=== PATIENT | female | born 1950 | race Caucasian/White ===

== ENCOUNTER 2016-12-25 23:12 | Emergency (ER) | payer OTHER ==
[2016-12-25 23:22] VITALS: BP 181/85; BMI 26.5
--- NOTE | 2016-12-25 23:25 | DR.GENAD ---
HPI - Complaint/Symptoms Chief Complaint Doctors Comments: Patient was using her walker and slipped and injured her head, and lower extremitiy. There was no LOC. Denies vomiting. PMH - PMH Past Medical History: Arthritis, Diabetes Past Surgical History: Yes Surgical History: Cholecystectomy, Hysterectomy - Social History Do you use any recreational Drugs:: No ROS - Review of Systems Constitutional: No Symptoms Reported Eyes: No Symptoms Reported ENTM: No Symptoms Reported Respiratoy: No Symptoms Reported Cardiovascular: No Symptoms Reported Gastrointestinal/Abdominal: No Symptoms Reported Genitourinary: No Symptoms Reported Neurological: No Symptoms Reported Musculoskeletal: No Symptoms Reported, Neck (right base of skull moderate hematoma) Integumentary: No Symptoms Reported Hematologic/Lymphatic: No Symptoms Reported Endocrine: No Symptoms Reported Psychiatric: No Symptoms Reported All Other Systems: Reviewed and Negative PE - Vital Signs Vitals: Temperature 98.4 F Pulse Rate 118 Respiratory Rate 18 Blood Pressure 181/85 O2 Sat by Pulse Oximetry 97 - General General Appearance: Alert, In No Apparent Distress - Head Head Exam: Other (large hematoma right base of skull) - Eyes Eye exam: Normal Appearance, PERRL, EOMI - ENT ENT Exam: Normal Exam External Ear Exam: Normal External Inspection TM/Canal Exam: Bilateral Normal Nose Exam: Normal Nose Exam Mouth Exam: Normal Inspection Throat Exam: Normal Inspection - Neck Neck Exam: Normal Inspection, Full ROM - Chest Chest Inspection: Normal Inspection - Respiratory Respiratory Exam: Normal Lung Sounds Bilat Respiratory Exam: Bilateral Clear to Auscultation - Cardiovascular Cardiovascular Exam: Regular Rate, Normal Rhythm - Abdominal Exam Abdominal Exam: Normal Inspection Abdominal Tenderness: negative: RUQ, RLQ, LUQ, LLQ, Epigastrium, Suprapubic, Diffuse, Mild, Moderate, Severe, Other - Extremities Extremities Exam: Normal Inspection, Other (right foot c/o pain dorsally) - Back Back Exam: Normal Inspection - Neurologic Neurological Exam: Alert, Oriented X3, CN II-XII Intact - Psychiatric Psychiatric Exam: Normal Affect, Normal Mood - Skin Skin Exam: Warm, Dry, Intact ROR - XRAY XRAY Interpreted by: Radiologist (CT Brain: No acute abnormality identified, L Knee mild osteoarthritis, L foot normal, L ankle normal) - Diagnosis Discharge Problem: L Knee mild osteoarthritis Hematoma of right parietal scalp Qualifiers: Encounter type: initial encounter Qualified Code(s): S00.03XA - Contusion of scalp, initial encounter Contusion of left foot Qualifiers: Encounter type: initial encounter Qualified Code(s): S90.32XA - Contusion of left foot, initial encounter Ankle sprain Qualifiers: Encounter type: initial encounter Involved ligament of ankle: unspecified ligament Laterality: left Qualified Code(s): S93.402A - Sprain of unspecified ligament of left ankle, initial encounter - Discharge Plan Condition: Stable - Follow ups/Referrals Follow ups/Referrals: Behzad Whipple [Primary Care Provider] - 3 days - Instructions
--- NOTE | 2016-12-25 23:57 | CT ---
EXAM: CT BRAIN WITHOUT CONTRAST INDICATION: Fall, headache COMPARISION: No Priors TECHNIQUE: Routine axial CT of the brain was performed without intravenous contrast. FINDINGS: There is mild bilateral cortical atrophy. The ventricular system is not abnormally dilated. No intra or extra-axial mass or hemorrhage. The agosto-white junction is preserved. There is no evidence of suba cute ischemic change. The basilar cisterns are clear. The skull is intact. The paranasal sinuses and mastoid air cells are clear. IMPRESSION: There is bilateral cortical atrophy as described above. No acute abnormality identified. Reported By:
--- NOTE | 2016-12-25 23:59 | RAD ---
EXAM: Left foot x-ray INDICATION: Pain COMPARISION: None TECHNIQUE: AP, lateral, and oblique, three views FINDINGS: No acute fracture or dislocation. The joint spaces are preserved. The soft tissues are normal. No rad iopaque foreign body. IMPRESSION: Normal left foot x-ray exam Reported By:
--- NOTE | 2016-12-25 23:59 | RAD ---
EXAM: Left ankle x-ray INDICATION: Pain COMPARISION: No priors for comparison TECHNIQUE: AP, lateral, and oblique, three views FINDINGS: No acute fracture or dislocation. There is no evidence of an intraosseous lesion. The joint spaces ar e preserved. No joint effusion is identified. The surrounding soft tissues appear unremarkable. There is no evidence of a radiopaque foreign body. IMPRESSION: Normal left ankle x-ray exam Reported By:
--- NOTE | 2016-12-25 23:59 | RAD ---
EXAM: Left knee x-ray INDICATION: Knee Pain COMPARISION: None TECHNIQUE: AP, lateral, and oblique, three views FINDINGS: There is mild medial compartment joint space narrowing. The lateral compartment and patellofemoral nav int appear unremarkable. No acute fracture or dislocation. No joint effusion. The surrounding soft ti ssues appear unremarkable. IMPRESSION: There is mild osteoarthritis involving the medial compartment of the knee. No acute abnormality. Reported By:
== END 2016-12-26 00:52 | disposition home or self-care (01) ==
LOC: ER 23:12
DX: S00.03XA Contusion of scalp, initial encounter (principal); S90.32XA Contusion of left foot, initial encounter; S93.402A Sprain of unspecified ligament of left ankle, initial encounter; M17.12 Unilateral primary osteoarthritis, left knee; W18.49XA Other slipping, tripping and stumbling without falling, initial encounter; Y92.9 Unspecified place or not applicable; S09.8XXA Other specified injuries of head, initial encounter
CPT/HCPCS: 70450; 73560; 73610; 73630; 99283

== ENCOUNTER 2019-06-10 15:03 | Inpatient (IN) ==
--- NOTE | 2019-06-10 15:19 | DR.WEAKNES ---
HPI Time Seen Time Seen by Provider: 06/10/19 15:18 Primary Care Physician Primary Care Physician: CARLOS RODNEY Complaints Chief Complaint Doctors Comments: Sx's started >48 hrs ago. She felt ED would be too busy, so didn't come. Now with persistent sx's of left sided CVA. Weak left arm and leg. No headache or blurred vision. No N or V. No difficulty with speech. Chief Complaint:: PT TO ER VIA EMS WITH C/O LEFT SIDE WEAKNESS THAT STARTED ON SUNDAY , PT C/O LEFT SIDE WEAKNESS AND PT IS NOT ABLE TO MOVE HER LEFT LOWER EXT AT ALL , PT STATES " I DID NOT COME ON SUNDAY B/C I KNEW [facility] WOULD BE BUSY .. Self Treatment fo Chief Complaint: PT IS A POOR HISTORIAN , Reviewed Nurses Notes Reviewed: Yes Source History Provided: Patient Mode of Arrival Mode of Arrival: EMS Timing Onset of Chief Complaint: 06/08/19 Since onset, symptoms are:: Unchanged Symptom Onset: Known Duration Duration: Since Onset Context Onset: Spontaneous Symptoms: Weakness and Difficulty walking History of: None Stroke Symptoms: Weakness of limb; denies Acute confusion and Slurring Location Weakness Location: Left, Sided, Arm and Leg Associated Signs and Symptoms Associated Signs and Symptoms: None PMH PMH Past Medical History: Yes Past Medical History: Arthritis and Diabetes Past Medical History Comment: no HTN. Past Surgical History: Yes Surgical History: Cholecystectomy and Hysterectomy Family History History of Family Medical Conditions: No Social History Does patient currently use any type of tobacco product: Yes Have you used tobacco products in the last 12 months: Yes Type of Tobacco Use: Cigarettes Does any household member use tobacco: No Alcohol Use: None Do you use any recreational Drugs:: No Lives With: Family Lives Where: Home infectious screening In the last 2 months have you had wt loss of >10#?: NO Have you had fever, night sweats or hemotysis?: No Have you traveled outside the country in the last 6 months?: No Isolation: Standard ROS Review of Systems Constitutional: No Symptoms Reported Eyes: No Symptoms Reported; negative Blurred Vision Respiratoy: No Symptoms Reported Cardiovascular: No Symptoms Reported Gastrointestinal/Abdominal: No Symptoms Reported Neurological: Weakness; negative Headache, Pre-existing Deficit, Seizure and Speech Problem Integumentary: No Symptoms Reported All Other Systems: Reviewed and Negative PE Vital Signs Vitals: Temperature 97.7 F Pulse Rate [Left Brachial] 109 Pulse Rate 118 Respiratory Rate 17 Blood Pressure [Left Arm] 114/73 Blood Pressure 163/80 O2 Sat by Pulse Oximetry 93 General Limitations: No Limitations General Appearance: Alert and In No Apparent Distress Head Head Exam: Atraumatic Eyes Eye exam: Normal Appearance and EOMI ENT ENT Exam: Mucous Membranes Dry Neck Neck Exam: Normal Inspection and Full ROM; negative Meningismus Respiratory Respiratory Exam: Normal Lung Sounds Bilat Cardiovascular Cardiovascular Exam: Regular Rate and Normal Rhythm Abdominal Exam Abdominal Exam: Normal Inspection and Soft; negative Tenderness and Guarding Extremities Extremities Exam: negative Edema and Calf Tenderness Neurologic Neurological Exam: Alert, Oriented X3 and Motor Sensory Deficit Cranial Nerve Exam: EOM Function (II, III, IV, ): Normal, Facial Sensation (V): Normal, Facial Palsy (VII): Normal and Tongue Deviation: Normal Motor Strength - LUE: 2/5 Motor Strength - RUE: 5/5 Motor Strength - LLE: 2/5 Motor Strength - RLE: 5/5 Psychiatric Psychiatric Exam: Normal Affect and Normal Mood Skin Skin Exam: Warm, Dry and Normal Color MDM Differential Diagnosis Differential Diagnosis: CVA, Hypoglycemia, Mass Lesion and SAH ROR Labs Reviewed Laboratory Results Reviewed?: Yes Result Diagrams: 06/10/19 16:00 06/10/19 16:00 Laboratory: WBC 12.2 X10^3/uL (3.6-10.0) H 06/10/19 16:00 RBC 5.81 X10^6/uL (3.5-5.4) H 06/10/19 16:00 Hgb 17.3 g/dL (12.0-16.0) H 06/10/19 16:00 Hct 50.2 % (36.0-47.0) H 06/10/19 16:00 MCV 86.5 fL (80.0-100.0) 06/10/19 16:00 MCH 29.8 pg (27.0-34.0) 06/10/19 16:00 MCHC 34.5 g/dL (33.0-35.0) 06/10/19 16:00 RDW 14.1 % (11.6-16.5) 06/10/19 16:00 Plt Count 295 X10^3/uL (150.0-450.0) 06/10/19 16:00 MPV 9.1 fL (7.4-11.0) 06/10/19 16:00 Neut % (Auto) 77.3 % (42.0-75.0) H 06/10/19 16:00 Lymph % (Auto) 15.4 % (21.0-51.0) L 06/10/19 16:00 Dixon % (Auto) 5.6 % (0.0-13.0) 06/10/19 16:00 Eos % (Auto) 0.8 % (0.9-2.9) L 06/10/19 16:00 Baso % (Auto) 0.9 % (0.2-1.0) 06/10/19 16:00 Neut # (Auto) 9.5 x10^3/uL (2.2-4.8) H 06/10/19 16:00 Lymph # (Auto) 1.9 X10^3/uL (1.3-2.9) 06/10/19 16:00 Dixon # (Auto) 0.7 x10^3/uL (0.3-0.8) 06/10/19 16:00 Eos # (Auto) 0.1 x10^3/uL (0.0-0.2) 06/10/19 16:00 Baso # (Auto) 0.1 X10^3/uL (0.0-0.1) 06/10/19 16:00 Absolute Nucleated RBC 0.0 /100WBC 06/10/19 16:00 PT 13.2 SECONDS (11.8-14.3) 06/10/19 16:00 INR Target Range - 06/10/19 16:00 INR 1.04 (0.8-1.3) 06/10/19 16:00 APTT 25.4 SECONDS (22.9-36.5) 06/10/19 16:00 PTT Comment - 06/10/19 16:00 Fibrinogen 347 mg/dL (239-489) 06/10/19 16:00 Sodium 138 mmol/L (136-145) 06/10/19 16:00 Corrected Sodium 142 mmol/L (136-145) 06/10/19 16:00 Potassium 3.9 mmol/L (3.5-5.1) 06/10/19 16:00 Chloride 101 mmol/L (98-107) 06/10/19 16:00 Carbon Dioxide 26.5 mmol/L (21-32) 06/10/19 16:00 BUN 18 mg/dL (7-18) 06/10/19 16:00 Creatinine 0.58 mg/dL (0.55-1.02) 06/10/19 16:00 Est GFR (MDRD) Af Amer > 60 (>60) 06/10/19 16:00 Est GFR (MDRD) Non-Af > 60 (>60) 06/10/19 16:00 Glucose 252 mg/dL (65-99) H 06/10/19 16:00 Calcium 9.6 mg/dL (8.5-10.1) 06/10/19 16:00 Corrected Calcium TNP 06/10/19 16:00 Total Bilirubin 0.70 mg/dL (0.2-1.0) 06/10/19 16:00 AST 21 Units/L (15-37) 06/10/19 16:00 ALT 36 Units/L (12-78) 06/10/19 16:00 Alkaline Phosphatase 98 Units/L (46-116) 06/10/19 16:00 Total Protein 7.2 g/dL (6.4-8.2) 06/10/19 16:00 Albumin 3.6 g/dL (3.4-5.0) 06/10/19 16:00 Globulin 3.6 g/dL (2.5-4.5) 06/10/19 16:00 Albumin/Globulin Ratio 1.0 Ratio (1.1-2.1) L 06/10/19 16:00 Triglycerides 318 mg/dL (0-150) H 06/10/19 16:00 Cholesterol 254 mg/dL (0-200) H 06/10/19 16:00 LDL Cholesterol, Calc 164 mg/dL (0-100) H 06/10/19 16:00 HDL Cholesterol 26 mg/dL (40-60) L 06/10/19 16:00 Cholesterol/HDL Ratio 9.8 (0.0-5.0) H 06/10/19 16:00 XRAY X-ray Results: CT and MRI show CVA right internal capsule EKG Rate: 109 Tyler: Normal Rhythm: NSR and PVCs Block: None Hypertrophy: None ST: Nonsp Opioid Opioid Risk Tool Age (Sonny box if 16-45): No History of Preadolescent Sexual Abuse: No Total: 0 Total Score Risk Category: Low Risk Copyright: Mikie ODELL predicting aberrant behaviors ADDITIONAL NOTES Additional Notes Additional Notes: CVA admit ICU
--- NOTE | 2019-06-10 15:52 | CT ---
HISTORYLEFT SIDED WEAKNESS X 2 DAYSSTUDYCT HEAD without CONTRASTCOMPARISONNoneTECHNIQUEAxial CT of the head is performed from the base of the skull through the vertex without contrast . Multiplaner reformats are generated from the original axial data.FINDINGSThere is no intracranial hemorrhage identified. There is no extra-axial fluid collection. There is no mass effect, midline shift or evidence of cerebral edema. Advanced cortical volume loss is observed with commensurate dilation of the ventricles. Patchy periventricular and subcortical white matter hypodensities are observed, consistent with chronic microangiopathic ischemic changes. There is a more focal area of hypoattenuation observed within the posterior limb of the right internal capsule, consistent with an age indeterminate infarct, possibly subacute in nature. Otherwise, no acute stage, large artery territorial infarct is identified separately. Atherosclerotic calcifications are observed within the cavernous ICA segments and vertebral arteries.IMPRESSIONAge indeterminate small vessel infarct associated with the posterior limb of the right internal capsule, possibly subacute in nature. MRI would most accurately date this event.Moderate cortical volume loss of the supratentorial brain with commensurate ex vacuo dilatation of the lateral ventriclesOther findings of chronic microangiopathic ischemia associated with the deep supratentorial white matter tracts.Radiation dose reduction was achieved through individualized adjustment of kVP and/or mA, through adaptive statistical iterative reconstruction, and/or through automated tube current modulation.Electronically signed by: CHINEUD JAMA (Jun 10, 2019 15:50:59)
[2019-06-10 16:16] LABS: BASOPHILS # (AUTO) 0.1 X10^3/uL (0.0-0.1); BASOPHILS % (AUTO) 0.9 % (0.2-1.0); EOSINOPHILS # (AUTO) 0.1 x10^3/uL (0.0-0.2); EOSINOPHILS % (AUTO) 0.8 % (0.9-2.9); HEMATOCRIT 50.2 % (36.0-47.0); HEMOGLOBIN 17.3 g/dL (12.0-16.0); LYMPHOCYTES # (AUTO) 1.9 X10^3/uL (1.3-2.9); LYMPHOCYTES % (AUTO) 15.4 % (21.0-51.0); MEAN CORPUSCULAR HEMOGLOBIN 29.8 pg (27.0-34.0); MEAN CORPUSCULAR HGB CONC 34.5 g/dL (33.0-35.0); MEAN CORPUSCULAR VOLUME 86.5 fL (80.0-100.0); MEAN PLATELET VOLUME 9.1 fL (7.4-11.0); MONOCYTES # (AUTO) 0.7 x10^3/uL (0.3-0.8); MONOCYTES % (AUTO) 5.6 % (0.0-13.0); NEUTROPHILS # (AUTO) 9.5 x10^3/uL (2.2-4.8); NEUTROPHILS % (AUTO) 77.3 % (42.0-75.0); PLATELET COUNT 295 X10^3/uL (150.0-450.0); RED BLOOD COUNT 5.81 X10^6/uL (3.5-5.4); RED CELL DISTRIBUTION WIDTH 14.1 % (11.6-16.5); WHITE BLOOD COUNT 12.2 X10^3/uL (3.6-10.0)
[2019-06-10 16:29] LABS: ALANINE AMINOTRANSFERASE 36 Units/L (12-78); ALBUMIN 3.6 g/dL (3.4-5.0); ALKALINE PHOSPHATASE 98 Units/L (46-116); ASPARTATE AMINO TRANSFERASE 21 Units/L (15-37); BLOOD UREA NITROGEN 18 mg/dL (7-18); CALCIUM 9.6 mg/dL (8.5-10.1); CARBON DIOXIDE 26.5 mmol/L (21-32); CHLORIDE 101 mmol/L (98-107); CHOL/HDL RATIO 9.8 (0.0-5.0); CHOLESTEROL 254 mg/dL (0-200); COR NA(FOR HYPERGLY) 142 mmol/L (136-145); CREATININE 0.58 mg/dL (0.55-1.02); HDL CHOLESTEROL 26 mg/dL (40-60); SODIUM 138 mmol/L (136-145); TOTAL PROTEIN 7.2 g/dL (6.4-8.2); TRIGLYCERIDES 318 mg/dL (0-150); eGFR NON BLACK RACES > 60 (>60)
--- NOTE | 2019-06-10 17:29 | MRI ---
HISTORYCVA. Left-sided weakness for 2 days.STUDYBRAIN W/O CONCOMPARISONCT examinations from June 10, 2019 and December 25, 2016.TECHNIQUEMultiplanar multi-sequence MRI of the brain was obtained utilizing standard departmental protocol. Sagittal and axial T1, axial T2, FLAIR, diffusion (DWI/ADC, GRE, and coronal T1 images through the brain were performed.FINDINGSThe sulci, cisterns and ventricles are prominent consistent with diffuse volume loss. There are confluent and scattered foci of T2 prolongation in the periventricular and subcortical white matter of both hemispheres. This is a nonspecific finding which likely represents microangiopathic change in a patient of this age.There is a focus of decreased diffusion with associated T2 hyperintensity which appears centered in the posterior limb of the right internal capsule, with some extension into the right periventricular keating radiata. There may be some additional adjacent involvement of the right globus pallidus and right thalamus. There is no evidence of acute hemorrhage, mass, mass effect, or midline shift. There are no abnormal intra-axial or extra-axial fluid collections. The major intracranial vascular flow voids appear intact. The vertebral arteries are codominant.IMPRESSION1. Acute to early subacute infarct involving the posterior limb of the right internal capsule with extension into the right keating radiata, thalamus, and globus pallidus.2. Nonspecific white matter change and volume loss.Electronically signed by: JENNIE MONTENEGRO (Jun 10, 2019 17:27:41)
[2019-06-10] MEDS ORDERED: ASPIRIN 81 MG CHEWTAB ONE (19:39)
[2019-06-10] MEDS: ASPIRIN 81 MG CHEWTAB PO SCH (19:42)
[2019-06-10] MEDS: LIPITOR TAB 40 MG PO SCH (21:54)
[2019-06-10] MEDS: ULTRAM PO PRN (22:45)
[2019-06-10] MEDS: BUTT CREAM (COMPOUND) TOP PRN (22:45)
[2019-06-11 01:12] VITALS: BMI 28.3
[2019-06-11 05:17] LABS: BASOPHILS % (AUTO) 0.4 % (0.2-1.0); EOSINOPHILS # (AUTO) 0.2 x10^3/uL (0.0-0.2); EOSINOPHILS % (AUTO) 1.6 % (0.9-2.9); HEMATOCRIT 46.8 % (36.0-47.0); HEMOGLOBIN 16.3 g/dL (12.0-16.0); LYMPHOCYTES # (AUTO) 2.9 X10^3/uL (1.3-2.9); MEAN CORPUSCULAR HEMOGLOBIN 30.5 pg (27.0-34.0); MEAN CORPUSCULAR HGB CONC 34.8 g/dL (33.0-35.0); MEAN CORPUSCULAR VOLUME 87.7 fL (80.0-100.0); MEAN PLATELET VOLUME 9.5 fL (7.4-11.0); MONOCYTES # (AUTO) 0.7 x10^3/uL (0.3-0.8); MONOCYTES % (AUTO) 6.1 % (0.0-13.0); NEUTROPHILS # (AUTO) 7.7 x10^3/uL (2.2-4.8); NEUTROPHILS % (AUTO) 66.9 % (42.0-75.0); PLATELET COUNT 300 X10^3/uL (150.0-450.0); RED BLOOD COUNT 5.34 X10^6/uL (3.5-5.4); RED CELL DISTRIBUTION WIDTH 13.8 % (11.6-16.5); WHITE BLOOD COUNT 11.5 X10^3/uL (3.6-10.0)
[2019-06-11 05:18] LABS: ALANINE AMINOTRANSFERASE 30 Units/L (12-78); ALBUMIN 3.3 g/dL (3.4-5.0); ALKALINE PHOSPHATASE 89 Units/L (46-116); ASPARTATE AMINO TRANSFERASE 18 Units/L (15-37); BLOOD UREA NITROGEN 20 mg/dL (7-18); CALCIUM 8.6 mg/dL (8.5-10.1); CHLORIDE 101 mmol/L (98-107); COR CA(FOR HYPOALB) 9.2 mg/dL (8.5-10.1); COR NA(FOR HYPERGLY) 140 mmol/L (136-145); CREATININE 0.56 mg/dL (0.55-1.02); SODIUM 137 mmol/L (136-145); TOTAL PROTEIN 6.5 g/dL (6.4-8.2); eGFR NON BLACK RACES > 60 (>60)
[2019-06-11] MEDS ORDERED: KLOR-CON PO PRN (05:42)
[2019-06-11] MEDS ORDERED: POTASSIUM CHL 40 MEQ/NS 0.45% 500 ML IV PRN (05:42)
[2019-06-11] MEDS ORDERED: POTASSIUM CHL 60 MEQ/NS 0.45% 500 ML IV PRN (05:42)
[2019-06-11] MEDS ORDERED: POTASSIUM CHLORIDE LIQ 20 MEQ UDC PO PRN (05:42)
[2019-06-11] MEDS ORDERED: K-RIDER 10 MEQ/NS 100 ML 10 MEQ/100 ML BAG IV PRN (05:42)
[2019-06-11] MEDS ORDERED: MICRO K EXTEN CAP 10 MEQ PO PRN (05:42)
[2019-06-11] MEDS: HumuLIN R SUBCUT PRN ×4 (05:55→20:43)
[2019-06-11] MEDS: K-DUR TAB 20 MEQ PO PRN (06:09)
[2019-06-11] MEDS: MAGNESIUM SULFATE 1 GRAM/100 mL PREMIX 1 GM/100 ML BAG IV PRN ×2 (06:37→08:26)
[2019-06-11] MEDS ORDERED: NS 100 ML IV 100 ML IV ONE (06:39)
[2019-06-11] MEDS: ASPIRIN 81 MG CHEWTAB PO SCH (08:27)
[2019-06-11] MEDS ORDERED: ASPIRIN 81 MG CHEWTAB ONE (09:24)
[2019-06-11] MEDS: PLAVIX PO SCH (09:25)
[2019-06-11] MEDS: ECOTRIN TAB 325 MG PO SCH (09:28)
--- NOTE | 2019-06-11 11:45 | VAS ---
HISTORY: Concern for carotid artery stenosis. [Acute CVA].EXAM: BILATERAL DOPPLER CAROTID ULTRASOUND EXAMTechnique: Multiple agosto scale and color flow Doppler images of the right and left carotid arterial system were obtained. The vertebral arterial system was evaluated as well.Findings:Nonocclusive color flow Doppler is seen throughout the right and left carotid arterial system. No hemodynamically significant carotid arterial stenosis is seen based on velocity criteria. There is [mild] atherosclerosis and [soft atherosclerotic] plaque formation of the bilateral carotid bulbs and ICAs with associated intimal thickening but [without] evidence for high-grade stenosis (>70%) or occlusion of the carotid arteries. The right and left vertebral artery demonstrate antegrade flow.IMPRESSION:[Mild] atherosclerosis and [soft atherosclerotic] plaque formation of the bilateral carotid bulbs and [in both] ICAs with associated carotid intimal thickening but without evidence for high-grade stenosis or occlusion of the carotid arteries, based on Doppler velocity criteria. Appropriate, antegrade, vertebral arterial flow.Peak right ICA velocity: [82] centimeter/seconds.Peak right CCA velocity: [75] centimeter/seconds.Peak left ICA velocity: [84] centimeter/seconds.Peak left CCA velocity: [94] centimeter/seconds.Right ICA to CCA ratio: [1.2].Left ICA to CCA ratio: [0.9].Electronically signed by: JOHANA BERMEO III (Jun 11, 2019 11:43:39)
--- NOTE | 2019-06-11 11:51 | DR.H&P ---
H&P - History & Physical for Day of: H&P Date: 06/10/19 - Chief Complaint Chief Complaint: LEFT SIDED WEAKNESS THAT STARTED ON 06/08/19 - History of Present Illness History of Present Illness: IS A 69 YEAR OLD PATIENT OF OURS WHO PRES ENTED TO THE ER WITH COMPLAINTS OF LEFT SIDED WEAKNESS THAT STARTED ON 06/08/19. PATIENT REPORTS THAT SHE IS UNABLE TO MOVE HER LEFT LOWER EXTREMITY AT ALL, BUT CAN MOVE HER LEFT ARM SOME. SHE DENIES DIFFICULTY WITH SPEECH OR CONFUSION. ON ARRIVAL, VITALS WERE 97.7-118-18-99%-163/80. LABS WERE OBTAINED. ABNORMAL LAB VALUES INCLUDE THE FOLLOWING: WBC 12.2, RBC 5.81, HGB 17.3, HCT 50.2, GLUCOSE 252, TRIGLYCERIDES 318, CHOLESTEROL 254, LDL 164, HCL 26, CHOLESTEROL/HDL RATIO 9.8. EKG REVEALED: SINUS TACHYCARDIA WITH HR 109. A BRAIN CT WAS OBTAINED AND REVEALED: Age indeterminate small vessel infarct associated with the posterior limb of the right internal capsule, possibly subacute in nature. MRI would most accurately date this event. Moderate cortical volume loss of the supratentorial brain with commensurate ex vacuo dilatation of the lateral ventricles. Other findings of chronic microangiopathic ischemia associated with the deep supratentorial white matter tracts. WE OBTAINED A BRAIN MRI WHICH REVEALED: 1. Acute to early subacute infarct involving the posterior limb of the right internal capsule with extension into the right keating radiata, thalamus, and globus pallidus. 2. Nonspecific white matter change and volume loss. ECHO REVEALED AN EJECTION FRACTION OF 52%. SHE WAS ADMITTED FOR FURTHER EVALUATION AND TREATMENT OF ACUTE CVA. WE WILL START ECOTRIN 325MG PO DAILY, PLAVIX 75MGPO DAILY, HUMULIN R SLIDING SCALE, THE POTASSIUM AND MAGNESIUM PROTOCOLS, AND LIPITOR 40MG PO HS. WE WILL OBTAIN A CAROTID DOPPLER TODAY AND HAVE PHYSICAL THERAPY AND OCCUPATIONAL THERAPY EVALUATE PATIENT. OTHERWISE, WE WILL FOLLOW UP WITH AM LABS AND CONTINUE TO MONITOR. - Past Medical History Past Medical History: Diabetes, Arthritis - Past Surgical History Surgical History: Cholecystectomy, Hysterectomy, Tonsillectomy - Family History Family Medical History: Diabetes Mellitus, Cancer, ID - Social History Does patient currently use any type of tobacco product: Yes Have you used tobacco products in the last 12 months: Yes Type of Tobacco Use: Cigarettes How many years tobacco product used: 10 Does any household member use tobacco: Yes Alcohol Use: None Drug Use: None - Medications Home Medications: acetaminophen [From Vicodin] Allergy (Verified 06/10/19 15:12) hydrocodone [From Vicodin] Allergy (Verified 06/10/19 15:12) oxycodone Allergy (Verified 06/10/19 15:12) rosiglitazone [From Avandia] Allergy (Verified 06/10/19 15:12) CONTINUE taking the following medications lansoprazole 30 mg PO DAILY 06/10/19 [History] - Review of Systems Constitutional: Weakness Eyes: No Symptoms Reported ENT: No Symptoms Reported Respiratory: No Symptoms Reported Cardiovascular: No Symptoms Reported Gastrointestinal: No Symptoms Reported Genitourinary: No Symptoms Reported Musculoskeletal: See HPI Skin: No Symptoms Reported Neurological: See HPI, Weakness (LEFT SIDED WEAKNESS ) - Physical Exam Vital Signs: Temperature 98.2 F Pulse Rate [Left Brachial] 96 Pulse Rate 118 Respiratory Rate 23 Blood Pressure [Right Arm] 116/76 Blood Pressure [Left Arm] 114/73 Blood Pressure 163/80 O2 Sat by Pulse Oximetry 96 Oriented: Normal Eyes: Normal Ear: Normal Nose: Normal Throat: Normal Respiratory: Diminished Throughout Cardiovascular: Normal : Normal Auscultation: Bowel Sounds: Normal Palpation: Normal Tenderness: Normal Skin: Normal Musculoskeletal: Motor Deficit (LEFT UPPER AND LOWER EXTREMITY WEAKNESS ) Psychiatric: Normal Mood Description: Calm Affect: Normal Speech Pattern: Clear - Assessment/Plan (1) Acute CVA (cerebrovascular accident) Status: Acute Plan: ECOTRIN 325MG PO DAILY, PLAVIX 75MGPO DAILY, HUMULIN R SLIDING SCALE, THE POTASSIUM AND MAGNESIUM PROTOCOLS, AND LIPITOR 40MG PO HS - Allergies Allergies/Adverse Reactions: Allergies Allergy/AdvReac Type Severity Reaction Status Date / Time acetaminophen [From Vicodin] Allergy Verified 06/10/19 15:12 hydrocodone [From Vicodin] Allergy Verified 06/10/19 15:12 oxycodone Allergy Verified 06/10/19 15:12 rosiglitazone [From Avandia] Allergy Verified 06/10/19 15:12
[2019-06-11] MEDS: LOVENOX INJ 40 MG SYR SC SCH ×2 (14:46→14:49)
[2019-06-11] MEDS: LIPITOR TAB 40 MG PO SCH (20:35)
[2019-06-11] MEDS: SNACK - Diabetic Appropriate PO SCH (20:35)
[2019-06-11] MEDS: BUTT CREAM (COMPOUND) TOP PRN (20:39)
[2019-06-11 21:28] LABS: BILIRUBIN,URINE NEGATIVE (NEGATIVE); BLOOD/HEMOGLOBIN,URINE 1+ (NEGATIVE); GLUCOSE, URINE 4+ (NEGATIVE); KETONES,URINE 3+ (NEGATIVE); LEUKOCYTE ESTERASE ,URINE NEGATIVE (NEGATIVE); NITRITES,URINE NEGATIVE (NEGATIVE); PROTEIN,URINE NEGATIVE (NEGATIVE); UROBILINOGEN,URINE NORMAL (NORMAL)
[2019-06-11 21:30] LABS: APPEARANCE,URINE SLIGHTLY HAZY (CLEAR); COLOR,URINE YELLOW (YELLOW)
[2019-06-11 21:34] LABS: BACTERIA,URINE TRACE /HPF (NEGATIVE); MUCUS,URINE FEW /HPF (NEGATIVE); SQUAMOUS EPITHELIAL CELL,UR FEW /HPF (NEGATIVE)
[2019-06-12] MEDS ORDERED: RESTORIL CAP 15 MG PO ONE (00:08)
[2019-06-12] MEDS: RESTORIL CAP 15 MG PO PRN (00:11)
[2019-06-12 05:29] LABS: BASOPHILS % (AUTO) 0.3 % (0.2-1.0); EOSINOPHILS # (AUTO) 0.2 x10^3/uL (0.0-0.2); EOSINOPHILS % (AUTO) 1.7 % (0.9-2.9); HEMATOCRIT 50.3 % (36.0-47.0); HEMOGLOBIN 17.3 g/dL (12.0-16.0); LYMPHOCYTES # (AUTO) 2.4 X10^3/uL (1.3-2.9); LYMPHOCYTES % (AUTO) 24.1 % (21.0-51.0); MEAN CORPUSCULAR HEMOGLOBIN 30.5 pg (27.0-34.0); MEAN CORPUSCULAR HGB CONC 34.4 g/dL (33.0-35.0); MEAN CORPUSCULAR VOLUME 88.7 fL (80.0-100.0); MEAN PLATELET VOLUME 9.6 fL (7.4-11.0); MONOCYTES # (AUTO) 0.7 x10^3/uL (0.3-0.8); MONOCYTES % (AUTO) 6.6 % (0.0-13.0); NEUTROPHILS # (AUTO) 6.8 x10^3/uL (2.2-4.8); NEUTROPHILS % (AUTO) 67.3 % (42.0-75.0); PLATELET COUNT 300 X10^3/uL (150.0-450.0); RED BLOOD COUNT 5.67 X10^6/uL (3.5-5.4); RED CELL DISTRIBUTION WIDTH 14.1 % (11.6-16.5); WHITE BLOOD COUNT 10.1 X10^3/uL (3.6-10.0)
[2019-06-12] MEDS: HumuLIN R SUBCUT PRN ×4 (05:29→20:25)
[2019-06-12 05:43] LABS: ALANINE AMINOTRANSFERASE 33 Units/L (12-78); ALBUMIN 3.5 g/dL (3.4-5.0); ALKALINE PHOSPHATASE 98 Units/L (46-116); ASPARTATE AMINO TRANSFERASE 18 Units/L (15-37); BLOOD UREA NITROGEN 11 mg/dL (7-18); CALCIUM 8.7 mg/dL (8.5-10.1); CARBON DIOXIDE 28.6 mmol/L (21-32); CHLORIDE 100 mmol/L (98-107); COR NA(FOR HYPERGLY) 141 mmol/L (136-145); MAGNESIUM 2.1 mg/dL (1.7-2.9); SODIUM 137 mmol/L (136-145); TOTAL PROTEIN 7.2 g/dL (6.4-8.2); eGFR NON BLACK RACES > 60 (>60)
[2019-06-12] MEDS: ULTRAM PO PRN ×2 (06:16→20:44)
[2019-06-12] MEDS: PLAVIX PO SCH (08:25)
[2019-06-12] MEDS: ECOTRIN TAB 325 MG PO SCH (08:26)
[2019-06-12] MEDS: LOVENOX INJ 40 MG SYR SC SCH (14:29)
--- NOTE | 2019-06-12 19:32 | PCM.PROG ---
Progress Note - Progress Note for Day of Date of Exam: 06/12/19 - Subjective Subjective: IS BEING TREATED FOR AN ACUTE CVA. TODAY, SHE IS ALERT, LYING IN BED ON MORNING ROUNDS. SHE CONTINUES WITH COMPLAINTS OF LEFT ARM AND LEFT LEG WEAKNESS. ON EXAMINATION, HEART IS REGULAR IN RATE AND RHYTHM. BILATERAL LUNGS ARE NOTED WITH DIMINISHED LUNG SOUNDS THROUGHOUT. ABDOMEN IS ROUND, SOFT, AND NON-TENDER WITH NORMAL BOWEL SOUNDS NOTED IN ALL QUADRANTS. SHE IS NOTED WITH WEAK HANDGRIPS AND WEAKNESS TO THE RIGHT LOWER EXTREMITY. HER VITALS THIS MORNING ARE: 98.4-98-15-95%-115/59. LABS WERE OBTAINED. ABNORMAL LAB VALUES INCLUDE THE FOLLOWING: WBC 10.1, RBC 5.67, HGB 17.3, HCT 50.3, GLUCOSE 258, TOTAL BILI 1.20. CAROTID DOPPLER WAS OBTAINED YESTERDAY AND REVEALED: [Mild] atherosclerosis and [soft atherosclerotic] plaque formation of the bilateral carotid bulbs and [in both] ICAs with associated carotid intimal thickening but without evidence for high-grade stenosis or occlusion of the carotid arteries, based on Doppler velocity criteria. Appropriate, antegrade, vertebral arterial flow. ECHO REVEALED AN EJECTION FRACTION OF 52%. SHE IS CURRENTLY RECEIVING ECOTRIN 325MG PO DAILY, PLAVIX 75MG PO DAILY, LIPITOR 40MG SC DAILY, HUMULIN R SLIDING SCALE, AND THE POTASSIUM AND MAGNESIUM PROTOCOLS. WE WILL CONTINUE WITH CURRENT PLAN OF CARE TODAY AND HAVE PHYSICAL THERAPY WORK WITH PATIENT. OTHERWISE, WE WILL FOLLOW UP WITH AM LABS AND CONTINUE TO MONITOR. - Past Medical Family Social History Past Med/Fam/Surg Hx: No changes since H&P Allergies: Allergies acetaminophen [From Vicodin] Allergy (Verified 06/10/19 15:12) hydrocodone [From Vicodin] Allergy (Verified 06/10/19 15:12) oxycodone Allergy (Verified 06/10/19 15:12) rosiglitazone [From Avandia] Allergy (Verified 06/10/19 15:12) - Review of Systems ROS: No change since H&P - Vital Signs and I&O's Vital Signs: Temperature 98.3 F Pulse Rate [Left Brachial] 109 Pulse Rate 114 Respiratory Rate 19 Blood Pressure [Right Arm] 151/78 Blood Pressure [Left Arm] 114/73 Blood Pressure 148/88 O2 Sat by Pulse Oximetry 98 Intake and Output: Intake & Output 0206/11/19 06/12/19 06/13/19 11:59 11:59 11:59 11:59 Intake Total 420 / 420 1410 / 1410 380 / 380 Output Total 0 / 0 475 / 475 575 / 575 Balance 420 / 420 935 / 935 -195 / -195 - Physical Exam Oriented: Normal Eyes: Normal Ear: Normal Nose: Normal Throat: Normal Respiratory: Generalized, Diminished Cardiovascular: Normal : Normal Auscultation: Bowel Sounds: Normal Palpation: Normal Tenderness: Normal Skin: Normal Musculoskeletal: Motor Deficit (LEFT UPPER AND LOWER EXTREMITY WEAKNESS ) Psychiatric: Normal Mood Description: Calm Affect: Normal Speech Pattern: Clear, Appropriate - Laboratory and Diagnostics Result Diagrams: 06/12/19 04:53 06/12/19 10:09 Labs: Laboratory WBC 10.1 X10^3/uL (3.6-10.0) H 06/12/19 04:53 RBC 5.67 X10^6/uL (3.5-5.4) H 06/12/19 04:53 Hgb 17.3 g/dL (12.0-16.0) H 06/12/19 04:53 Hct 50.3 % (36.0-47.0) H 06/12/19 04:53 MCV 88.7 fL (80.0-100.0) 06/12/19 04:53 MCH 30.5 pg (27.0-34.0) 06/12/19 04:53 MCHC 34.4 g/dL (33.0-35.0) 06/12/19 04:53 RDW 14.1 % (11.6-16.5) 06/12/19 04:53 Plt Count 300 X10^3/uL (150.0-450.0) 06/12/19 04:53 MPV 9.6 fL (7.4-11.0) 06/12/19 04:53 Neut % (Auto) 67.3 % (42.0-75.0) 06/12/19 04:53 Lymph % (Auto) 24.1 % (21.0-51.0) 06/12/19 04:53 [place] % (Auto) 6.6 % (0.0-13.0) 06/12/19 04:53 Eos % (Auto) 1.7 % (0.9-2.9) 06/12/19 04:53 Baso % (Auto) 0.3 % (0.2-1.0) 06/12/19 04:53 Neut # (Auto) 6.8 x10^3/uL (2.2-4.8) H 06/12/19 04:53 Lymph # (Auto) 2.4 X10^3/uL (1.3-2.9) 06/12/19 04:53 [place] # (Auto) 0.7 x10^3/uL (0.3-0.8) 06/12/19 04:53 Eos # (Auto) 0.2 x10^3/uL (0.0-0.2) 06/12/19 04:53 Baso # (Auto) 0.0 X10^3/uL (0.0-0.1) 06/12/19 04:53 Absolute Nucleated RBC 0.0 /100WBC 06/12/19 04:53 PT 13.2 SECONDS (11.8-14.3) 06/10/19 16:00 INR Target Range - 06/10/19 16:00 INR 1.04 (0.8-1.3) 06/10/19 16:00 APTT 25.4 SECONDS (22.9-36.5) 06/10/19 16:00 PTT Comment - 06/10/19 16:00 Fibrinogen 347 mg/dL (239-489) 06/10/19 16:00 Sodium 137 mmol/L (136-145) 06/12/19 04:53 Corrected Sodium 141 mmol/L (136-145) 06/12/19 04:53 Potassium 4.1 mmol/L (3.5-5.1) 06/12/19 10:09 Chloride 100 mmol/L (98-107) 06/12/19 04:53 Carbon Dioxide 28.6 mmol/L (21-32) 06/12/19 04:53 BUN 11 mg/dL (7-18) 06/12/19 04:53 Creatinine 0.60 mg/dL (0.55-1.02) 06/12/19 04:53 Est GFR (MDRD) Af Amer > 60 (>60) 06/12/19 04:53 Est GFR (MDRD) Non-Af > 60 (>60) 06/12/19 04:53 Glucose 258 mg/dL (65-99) H 06/12/19 04:53 POC Glucose (mg/dL) 265 mg/dL (65-99) H 06/12/19 16:14 Calcium 8.7 mg/dL (8.5-10.1) 06/12/19 04:53 Corrected Calcium TNP 06/12/19 04:53 Magnesium 2.1 mg/dL (1.7-2.9) 06/12/19 04:53 Total Bilirubin 1.20 mg/dL (0.2-1.0) H 06/12/19 04:53 AST 18 Units/L (15-37) 06/12/19 04:53 ALT 33 Units/L (12-78) 06/12/19 04:53 Alkaline Phosphatase 98 Units/L (46-116) 06/12/19 04:53 Total Protein 7.2 g/dL (6.4-8.2) 06/12/19 04:53 Albumin 3.5 g/dL (3.4-5.0) 06/12/19 04:53 Globulin 3.7 g/dL (2.5-4.5) 06/12/19 04:53 Albumin/Globulin Ratio 0.9 Ratio (1.1-2.1) L 06/12/19 04:53 Triglycerides 318 mg/dL (0-150) H 06/10/19 16:00 Cholesterol 254 mg/dL (0-200) H 06/10/19 16:00 LDL Cholesterol, Calc 164 mg/dL (0-100) H 06/10/19 16:00 HDL Cholesterol 26 mg/dL (40-60) L 06/10/19 16:00 Cholesterol/HDL Ratio 9.8 (0.0-5.0) H 06/10/19 16:00 Specimen Type Catherized urine 06/11/19 21:00 Urine Color Yellow (YELLOW) 06/11/19 21:00 Urine Appearance Slightly hazy (CLEAR) 06/11/19 21:00 Urine pH 5.0 (5.0 - 8.0) 06/11/19 21:00 Ur Specific [place] 1.020 (1.000-1.030) 06/11/19 21:00 Urine Protein Negative (NEGATIVE) 02/19/20 21:00 Urine Glucose (UA) 4+ (NEGATIVE) 06/11/19 21:00 Urine Ketones 3+ (NEGATIVE) 06/11/19 21:00 Urine Occult Blood 1+ (NEGATIVE) 06/11/19 21:00 Urine Nitrite Negative (NEGATIVE) 06/11/19 21:00 Urine Bilirubin Negative (NEGATIVE) 06/11/19 21:00 Urine Urobilinogen Normal (NORMAL) 06/11/19 21:00 Ur Leukocyte Esterase Negative (NEGATIVE) 06/11/19 21:00 Urine RBC 3-5 /HPF (0-3) A 06/11/19 21:00 Urine WBC 0-2 /HPF (0-5) 06/11/19 21:00 Ur Squamous Epith Cells Few /HPF (NEGATIVE) 06/11/19 21:00 Urine Bacteria Trace /HPF (NEGATIVE) 06/11/19 21:00 Urine Mucus Few /HPF (NEGATIVE) 06/11/19 21:00 Ur Culture Indicated? No/not indicated 06/11/19 21:00 - Plan (1) Acute CVA (cerebrovascular accident) Status: Acute Plan: ECOTRIN 325MG PO DAILY, PLAVIX 75MGPO DAILY, HUMULIN R SLIDING SCALE, THE POTASSIUM AND MAGNESIUM PROTOCOLS, AND LIPITOR 40MG PO HS
[2019-06-12] MEDS: LIPITOR TAB 40 MG PO SCH (20:24)
[2019-06-12] MEDS: SNACK - Diabetic Appropriate PO SCH (20:24)
[2019-06-12] MEDS: PEPCID TAB 20 MG PO SCH (22:09)
[2019-06-13] MEDS: HumuLIN R SUBCUT PRN ×4 (05:28→21:05)
[2019-06-13 06:31] LABS: BASOPHILS # (AUTO) 0.1 X10^3/uL (0.0-0.1); BASOPHILS % (AUTO) 0.6 % (0.2-1.0); EOSINOPHILS # (AUTO) 0.2 x10^3/uL (0.0-0.2); EOSINOPHILS % (AUTO) 1.9 % (0.9-2.9); HEMATOCRIT 48.1 % (36.0-47.0); HEMOGLOBIN 16.5 g/dL (12.0-16.0); LYMPHOCYTES # (AUTO) 2.3 X10^3/uL (1.3-2.9); LYMPHOCYTES % (AUTO) 23.5 % (21.0-51.0); MEAN CORPUSCULAR HEMOGLOBIN 29.9 pg (27.0-34.0); MEAN CORPUSCULAR HGB CONC 34.3 g/dL (33.0-35.0); MEAN CORPUSCULAR VOLUME 87.2 fL (80.0-100.0); MEAN PLATELET VOLUME 9.4 fL (7.4-11.0); MONOCYTES # (AUTO) 0.6 x10^3/uL (0.3-0.8); MONOCYTES % (AUTO) 6.4 % (0.0-13.0); NEUTROPHILS # (AUTO) 6.7 x10^3/uL (2.2-4.8); NEUTROPHILS % (AUTO) 67.6 % (42.0-75.0); PLATELET COUNT 278 X10^3/uL (150.0-450.0); RED BLOOD COUNT 5.51 X10^6/uL (3.5-5.4); RED CELL DISTRIBUTION WIDTH 13.9 % (11.6-16.5); WHITE BLOOD COUNT 9.9 X10^3/uL (3.6-10.0)
[2019-06-13 06:32] LABS: ALANINE AMINOTRANSFERASE 32 Units/L (12-78); ALBUMIN 3.2 g/dL (3.4-5.0); ALKALINE PHOSPHATASE 93 Units/L (46-116); ASPARTATE AMINO TRANSFERASE 20 Units/L (15-37); BLOOD UREA NITROGEN 12 mg/dL (7-18); CALCIUM 8.7 mg/dL (8.5-10.1); CARBON DIOXIDE 26.7 mmol/L (21-32); CHLORIDE 101 mmol/L (98-107); COR CA(FOR HYPOALB) 9.3 mg/dL (8.5-10.1); COR NA(FOR HYPERGLY) 139 mmol/L (136-145); CREATININE 0.55 mg/dL (0.55-1.02); SODIUM 135 mmol/L (136-145); TOTAL PROTEIN 6.8 g/dL (6.4-8.2); eGFR NON BLACK RACES > 60 (>60)
[2019-06-13] MEDS: PLAVIX PO SCH (09:03)
[2019-06-13] MEDS: ECOTRIN TAB 325 MG PO SCH (09:03)
[2019-06-13] MEDS: PEPCID TAB 20 MG PO SCH ×2 (09:03→21:05)
[2019-06-13] MEDS ORDERED: PROVENTIL NEB TX 0.083% 2.5MG/ 3ML NEB PRN (13:36)
[2019-06-13] MEDS: LOVENOX INJ 40 MG SYR SC SCH (15:02)
[2019-06-13] MEDS: SNACK - Diabetic Appropriate PO SCH (20:00)
[2019-06-13] MEDS: LIPITOR TAB 40 MG PO SCH (21:05)
[2019-06-14] MEDS: ULTRAM PO PRN ×3 (02:07→21:14)
[2019-06-14 06:17] LABS: BASOPHILS # (AUTO) 0.1 X10^3/uL (0.0-0.1); BASOPHILS % (AUTO) 0.5 % (0.2-1.0); EOSINOPHILS # (AUTO) 0.2 x10^3/uL (0.0-0.2); EOSINOPHILS % (AUTO) 2.1 % (0.9-2.9); HEMATOCRIT 47.2 % (36.0-47.0); HEMOGLOBIN 16.4 g/dL (12.0-16.0); LYMPHOCYTES # (AUTO) 2.8 X10^3/uL (1.3-2.9); LYMPHOCYTES % (AUTO) 24.7 % (21.0-51.0); MEAN CORPUSCULAR HEMOGLOBIN 30.1 pg (27.0-34.0); MEAN CORPUSCULAR HGB CONC 34.6 g/dL (33.0-35.0); MEAN CORPUSCULAR VOLUME 86.8 fL (80.0-100.0); MEAN PLATELET VOLUME 9.5 fL (7.4-11.0); MONOCYTES # (AUTO) 0.7 x10^3/uL (0.3-0.8); MONOCYTES % (AUTO) 6.5 % (0.0-13.0); NEUTROPHILS # (AUTO) 7.5 x10^3/uL (2.2-4.8); NEUTROPHILS % (AUTO) 66.2 % (42.0-75.0); PLATELET COUNT 277 X10^3/uL (150.0-450.0); RED BLOOD COUNT 5.44 X10^6/uL (3.5-5.4); RED CELL DISTRIBUTION WIDTH 13.5 % (11.6-16.5); WHITE BLOOD COUNT 11.3 X10^3/uL (3.6-10.0)
[2019-06-14] MEDS: HumuLIN R SUBCUT PRN ×4 (06:22→20:18)
[2019-06-14 06:36] LABS: ALANINE AMINOTRANSFERASE 31 Units/L (12-78); ALBUMIN 3.3 g/dL (3.4-5.0); ALKALINE PHOSPHATASE 94 Units/L (46-116); ASPARTATE AMINO TRANSFERASE 18 Units/L (15-37); BLOOD UREA NITROGEN 12 mg/dL (7-18); CALCIUM 8.7 mg/dL (8.5-10.1); CARBON DIOXIDE 25.2 mmol/L (21-32); CHLORIDE 101 mmol/L (98-107); COR CA(FOR HYPOALB) 9.3 mg/dL (8.5-10.1); COR NA(FOR HYPERGLY) 138 mmol/L (136-145); CREATININE 0.51 mg/dL (0.55-1.02); SODIUM 135 mmol/L (136-145); TOTAL PROTEIN 6.8 g/dL (6.4-8.2); eGFR NON BLACK RACES > 60 (>60)
[2019-06-14] MEDS: K-DUR TAB 20 MEQ PO PRN ×2 (06:46→08:56)
[2019-06-14] MEDS: ECOTRIN TAB 325 MG PO SCH (08:56)
[2019-06-14] MEDS: PEPCID TAB 20 MG PO SCH ×2 (08:56→20:17)
[2019-06-14] MEDS: PLAVIX PO SCH (08:57)
[2019-06-14] MEDS: LOVENOX INJ 40 MG SYR SC SCH (15:26)
[2019-06-14] MEDS: SNACK - Diabetic Appropriate PO SCH (20:16)
[2019-06-14] MEDS: LIPITOR TAB 40 MG PO SCH (20:16)
[2019-06-14] MEDS: RESTORIL CAP 15 MG PO PRN (22:08)
[2019-06-15] MEDS: HumuLIN R SUBCUT PRN ×4 (05:52→20:25)
[2019-06-15 06:24] LABS: BASOPHILS % (AUTO) 0.4 % (0.2-1.0); EOSINOPHILS # (AUTO) 0.3 x10^3/uL (0.0-0.2); EOSINOPHILS % (AUTO) 2.3 % (0.9-2.9); HEMATOCRIT 46.4 % (36.0-47.0); HEMOGLOBIN 15.9 g/dL (12.0-16.0); LYMPHOCYTES # (AUTO) 2.2 X10^3/uL (1.3-2.9); LYMPHOCYTES % (AUTO) 17.4 % (21.0-51.0); MEAN CORPUSCULAR HEMOGLOBIN 29.9 pg (27.0-34.0); MEAN CORPUSCULAR HGB CONC 34.2 g/dL (33.0-35.0); MEAN CORPUSCULAR VOLUME 87.4 fL (80.0-100.0); MEAN PLATELET VOLUME 9.4 fL (7.4-11.0); MONOCYTES # (AUTO) 0.7 x10^3/uL (0.3-0.8); MONOCYTES % (AUTO) 5.7 % (0.0-13.0); NEUTROPHILS # (AUTO) 9.2 x10^3/uL (2.2-4.8); NEUTROPHILS % (AUTO) 74.2 % (42.0-75.0); PLATELET COUNT 252 X10^3/uL (150.0-450.0); RED BLOOD COUNT 5.31 X10^6/uL (3.5-5.4); RED CELL DISTRIBUTION WIDTH 13.7 % (11.6-16.5); WHITE BLOOD COUNT 12.4 X10^3/uL (3.6-10.0)
[2019-06-15 06:44] LABS: ALANINE AMINOTRANSFERASE 29 Units/L (12-78); ALKALINE PHOSPHATASE 96 Units/L (46-116); ASPARTATE AMINO TRANSFERASE 19 Units/L (15-37); BLOOD UREA NITROGEN 18 mg/dL (7-18); CALCIUM 8.5 mg/dL (8.5-10.1); CARBON DIOXIDE 24.3 mmol/L (21-32); CHLORIDE 102 mmol/L (98-107); COR CA(FOR HYPOALB) 9.3 mg/dL (8.5-10.1); COR NA(FOR HYPERGLY) 138 mmol/L (136-145); SODIUM 135 mmol/L (136-145); TOTAL PROTEIN 6.5 g/dL (6.4-8.2); eGFR NON BLACK RACES > 60 (>60)
[2019-06-15] MEDS: PLAVIX PO SCH (09:05)
[2019-06-15] MEDS: ECOTRIN TAB 325 MG PO SCH (09:05)
[2019-06-15] MEDS: MILK OF MAGNESIA PO SCH (09:06)
[2019-06-15] MEDS: PEPCID TAB 20 MG PO SCH ×2 (09:06→20:22)
[2019-06-15] MEDS: LOVENOX INJ 40 MG SYR SC SCH (15:12)
[2019-06-15] MEDS: COLACE CAP 100 MG PO SCH (20:22)
[2019-06-15] MEDS: LIPITOR TAB 40 MG PO SCH (20:22)
[2019-06-15] MEDS: SNACK - Diabetic Appropriate PO SCH (20:27)
--- NOTE | 2019-06-15 21:00 | PCM.PROG ---
Progress Note - Progress Note for Day of Date of Exam: 06/13/19 (.) - Subjective Subjective: IS BEING TREATED FOR AN ACUTE CVA. TODAY, SHE IS ALERT, LYING IN BED ON MORNING ROUNDS. SHE CONTINUES WITH COMPLAINTS OF LEFT ARM AND LEFT LEG WEAKNESS. ON EXAMINATION, HEART IS REGULAR IN RATE AND RHYTHM. BILATERAL LUNGS ARE NOTED WITH DIMINISHED LUNG SOUNDS THROUGHOUT. ABDOMEN IS ROUND, SOFT, AND NON-TENDER WITH NORMAL BOWEL SOUNDS NOTED IN ALL QUADRANTS. SHE IS NOTED WITH WEAK HANDGRIPS AND WEAKNESS TO THE RIGHT LOWER EXTREMITY. HER VITALS THIS MORNING ARE: 98.4-97-25-97%-117/61. LABS WERE OBTAINED. ABNORMAL LAB VALUES INCLUDE THE FOLLOWING: RBC 5.5, HGB 16.5, HCT 48.1, SODIUM 135, GLUCOSE 246, TOTAL BILI 1.10, ALBUMIN 3.2. SHE IS CURRENTLY RECEIVING ECOTRIN 325MG PO DAILY, PLAVIX 75MG PO DAILY, LIPITOR 40MG SC DAILY, HUMULIN R SLIDING SCALE, AND THE POTASSIUM AND MAGNESIUM PROTOCOLS. WE WILL CONTINUE WITH CURRENT PLAN OF CARE TODAY AND HAVE PHYSICAL THERAPY CONTINUE TO WORK WITH PATIENT. OTHERWISE, WE WILL FOLLOW UP WITH AM LABS AND CONTINUE TO MONITOR. - Past Medical Family Social History Past Med/Fam/Surg Hx: No changes since H&P Allergies: Allergies acetaminophen [From Vicodin] Allergy (Verified 06/10/19 15:12) hydrocodone [From Vicodin] Allergy (Verified 06/10/19 15:12) oxycodone Allergy (Verified 06/10/19 15:12) rosiglitazone [From Avandia] Allergy (Verified 06/10/19 15:12) - Review of Systems ROS: No change since H&P - Vital Signs and I&O's Vital Signs: Temperature 99.3 F Pulse Rate [Left Brachial] 116 Pulse Rate 91 Respiratory Rate 20 Blood Pressure [Right Arm] 123/80 Blood Pressure [Left Arm] 114/73 Blood Pressure 128/84 O2 Sat by Pulse Oximetry 97 Intake and Output: Intake & Output 06/13/19 06/14/19 06/15/19 06/16/19 11:59 11:59 11:59 11:59 Intake Total 860 / 860 1422 / 1422 1270 / 1270 480 / 480 Output Total 1350 / 1350 1550 / 1550 800 / 800 250 / 250 Balance -490 / -490 -128 / -128 470 / 470 230 / 230 - Physical Exam Oriented: Normal Eyes: Normal Ear: Normal Nose: Normal Throat: Normal Respiratory: Generalized, Diminished Cardiovascular: Normal : Normal Auscultation: Bowel Sounds: Normal Tenderness: Normal Skin: Normal Musculoskeletal: Motor Deficit (LEFT UPPER AND LOWER EXTREMITY WEAKNESS ) Psychiatric: Normal Mood Description: Calm Affect: Normal Speech Pattern: Clear, Appropriate - Laboratory and Diagnostics Result Diagrams: 06/15/19 05:45 06/15/19 05:45 Labs: Laboratory WBC 12.4 X10^3/uL (3.6-10.0) H 06/15/19 05:45 RBC 5.31 X10^6/uL (3.5-5.4) 06/15/19 05:45 Hgb 15.9 g/dL (12.0-16.0) 06/15/19 05:45 Hct 46.4 % (36.0-47.0) 06/15/19 05:45 MCV 87.4 fL (80.0-100.0) 06/15/19 05:45 MCH 29.9 pg (27.0-34.0) 06/15/19 05:45 MCHC 34.2 g/dL (33.0-35.0) 06/15/19 05:45 RDW 13.7 % (11.6-16.5) 06/15/19 05:45 Plt Count 252 X10^3/uL (150.0-450.0) 06/15/19 05:45 MPV 9.4 fL (7.4-11.0) 06/15/19 05:45 Neut % (Auto) 74.2 % (42.0-75.0) 06/15/19 05:45 Lymph % (Auto) 17.4 % (21.0-51.0) L 06/15/19 05:45 [place] % (Auto) 5.7 % (0.0-13.0) 06/15/19 05:45 Eos % (Auto) 2.3 % (0.9-2.9) 06/15/19 05:45 Baso % (Auto) 0.4 % (0.2-1.0) 06/15/19 05:45 Neut # (Auto) 9.2 x10^3/uL (2.2-4.8) H 06/15/19 05:45 Lymph # (Auto) 2.2 X10^3/uL (1.3-2.9) 06/15/19 05:45 [place] # (Auto) 0.7 x10^3/uL (0.3-0.8) 06/15/19 05:45 Eos # (Auto) 0.3 x10^3/uL (0.0-0.2) H 06/15/19 05:45 Baso # (Auto) 0.0 X10^3/uL (0.0-0.1) 06/15/19 05:45 Absolute Nucleated RBC 0.0 /100WBC 06/15/19 05:45 PT 13.2 SECONDS (11.8-14.3) 06/10/19 16:00 INR Target Range - 06/10/19 16:00 INR 1.04 (0.8-1.3) 06/10/19 16:00 APTT 25.4 SECONDS (22.9-36.5) 06/10/19 16:00 PTT Comment - 06/10/19 16:00 Fibrinogen 347 mg/dL (239-489) 06/10/19 16:00 Sodium 135 mmol/L (136-145) L 06/15/19 05:45 Corrected Sodium 138 mmol/L (136-145) 06/15/19 05:45 Potassium 4.5 mmol/L (3.5-5.1) 06/15/19 05:45 Chloride 102 mmol/L (98-107) 06/15/19 05:45 Carbon Dioxide 24.3 mmol/L (21-32) 06/15/19 05:45 BUN 18 mg/dL (7-18) 06/15/19 05:45 Creatinine 0.50 mg/dL (0.55-1.02) L 06/15/19 05:45 Est GFR (MDRD) Af Amer > 60 (>60) 06/15/19 05:45 Est GFR (MDRD) Non-Af > 60 (>60) 06/15/19 05:45 Glucose 211 mg/dL (65-99) H 06/15/19 05:45 POC Glucose (mg/dL) 252 mg/dL (65-99) H 06/15/19 20:09 Calcium 8.5 mg/dL (8.5-10.1) 06/15/19 05:45 Corrected Calcium 9.3 mg/dL (8.5-10.1) 06/15/19 05:45 Magnesium 2.1 mg/dL (1.7-2.9) 06/14/19 04:35 Total Bilirubin 0.80 mg/dL (0.2-1.0) 06/15/19 05:45 AST 19 Units/L (15-37) 06/15/19 05:45 ALT 29 Units/L (12-78) 06/15/19 05:45 Alkaline Phosphatase 96 Units/L (46-116) 06/15/19 05:45 Total Protein 6.5 g/dL (6.4-8.2) 06/15/19 05:45 Albumin 3.0 g/dL (3.4-5.0) L 06/15/19 05:45 Globulin 3.5 g/dL (2.5-4.5) 06/15/19 05:45 Albumin/Globulin Ratio 0.9 Ratio (1.1-2.1) L 06/15/19 05:45 Triglycerides 318 mg/dL (0-150) H 06/10/19 16:00 Cholesterol 254 mg/dL (0-200) H 06/10/19 16:00 LDL Cholesterol, Calc 164 mg/dL (0-100) H 06/10/19 16:00 HDL Cholesterol 26 mg/dL (40-60) L 06/10/19 16:00 Cholesterol/HDL Ratio 9.8 (0.0-5.0) H 06/10/19 16:00 Specimen Type Catherized urine 06/11/19 21:00 Urine Color Yellow (YELLOW) 06/11/19 21:00 Urine Appearance Slightly hazy (CLEAR) 06/11/19 21:00 Urine pH 5.0 (5.0 - 8.0) 06/11/19 21:00 Ur Specific [place] 1.020 (1.000-1.030) 06/11/19 21:00 Urine Protein Negative (NEGATIVE) 06/11/19 21:00 Urine Glucose (UA) 4+ (NEGATIVE) 06/11/19 21:00 Urine Ketones 3+ (NEGATIVE) 06/11/19 21:00 Urine Occult Blood 1+ (NEGATIVE) 06/11/19 21:00 Urine Nitrite Negative (NEGATIVE) 06/11/19 21:00 Urine Bilirubin Negative (NEGATIVE) 06/11/19 21:00 Urine Urobilinogen Normal (NORMAL) 06/11/19 21:00 Ur Leukocyte Esterase Negative (NEGATIVE) 06/11/19 21:00 Urine RBC 3-5 /HPF (0-3) A 06/11/19 21:00 Urine WBC 0-2 /HPF (0-5) 06/11/19 21:00 Ur Squamous Epith Cells Few /HPF (NEGATIVE) 06/11/19 21:00 Urine Bacteria Trace /HPF (NEGATIVE) 06/11/19 21:00 Urine Mucus Few /HPF (NEGATIVE) 06/11/19 21:00 Ur Culture Indicated? No/not indicated 06/11/19 21:00 - Plan (1) Acute CVA (cerebrovascular accident) Status: Acute Plan: ECOTRIN 325MG PO DAILY, PLAVIX 75MGPO DAILY, HUMULIN R SLIDING SCALE, THE POTASSIUM AND MAGNESIUM PROTOCOLS, AND LIPITOR 40MG PO HS
[2019-06-15] MEDS: ULTRAM PO PRN (22:54)
[2019-06-16] MEDS: HumuLIN R SUBCUT PRN ×4 (06:07→21:25)
[2019-06-16 06:39] LABS: BASOPHILS # (AUTO) 0.1 X10^3/uL (0.0-0.1); BASOPHILS % (AUTO) 0.6 % (0.2-1.0); EOSINOPHILS # (AUTO) 0.3 x10^3/uL (0.0-0.2); EOSINOPHILS % (AUTO) 2.6 % (0.9-2.9); HEMATOCRIT 46.2 % (36.0-47.0); HEMOGLOBIN 16.1 g/dL (12.0-16.0); LYMPHOCYTES # (AUTO) 2.4 X10^3/uL (1.3-2.9); LYMPHOCYTES % (AUTO) 22.1 % (21.0-51.0); MEAN CORPUSCULAR HEMOGLOBIN 30.4 pg (27.0-34.0); MEAN CORPUSCULAR HGB CONC 34.9 g/dL (33.0-35.0); MEAN CORPUSCULAR VOLUME 87.2 fL (80.0-100.0); MEAN PLATELET VOLUME 9.5 fL (7.4-11.0); MONOCYTES # (AUTO) 0.7 x10^3/uL (0.3-0.8); MONOCYTES % (AUTO) 6.2 % (0.0-13.0); NEUTROPHILS # (AUTO) 7.5 x10^3/uL (2.2-4.8); NEUTROPHILS % (AUTO) 68.5 % (42.0-75.0); PLATELET COUNT 251 X10^3/uL (150.0-450.0); RED CELL DISTRIBUTION WIDTH 13.7 % (11.6-16.5); WHITE BLOOD COUNT 10.9 X10^3/uL (3.6-10.0)
[2019-06-16 07:02] LABS: ALANINE AMINOTRANSFERASE 33 Units/L (12-78); ALBUMIN 3.1 g/dL (3.4-5.0); ALKALINE PHOSPHATASE 102 Units/L (46-116); ASPARTATE AMINO TRANSFERASE 25 Units/L (15-37); BLOOD UREA NITROGEN 13 mg/dL (7-18); CALCIUM 8.7 mg/dL (8.5-10.1); CARBON DIOXIDE 24.7 mmol/L (21-32); CHLORIDE 101 mmol/L (98-107); COR CA(FOR HYPOALB) 9.4 mg/dL (8.5-10.1); COR NA(FOR HYPERGLY) 139 mmol/L (136-145); CREATININE 0.46 mg/dL (0.55-1.02); SODIUM 136 mmol/L (136-145); TOTAL PROTEIN 6.7 g/dL (6.4-8.2); eGFR NON BLACK RACES > 60 (>60)
[2019-06-16] MEDS: PEPCID TAB 20 MG PO SCH ×2 (09:05→21:23)
[2019-06-16] MEDS: ECOTRIN TAB 325 MG PO SCH (09:05)
[2019-06-16] MEDS: MILK OF MAGNESIA PO SCH (09:05)
[2019-06-16] MEDS: PLAVIX PO SCH (09:05)
[2019-06-16] MEDS: LOVENOX INJ 40 MG SYR SC SCH (14:45)
[2019-06-16] MEDS: ULTRAM PO PRN ×2 (17:37→21:24)
--- NOTE | 2019-06-16 17:53 | PCM.PROG ---
Progress Note - Progress Note for Day of Date of Exam: 06/14/19 - Subjective Subjective: IS BEING TREATED FOR AN ACUTE CVA. TODAY, SHE IS ALERT, LYING IN BED ON MORNING ROUNDS. SHE CONTINUES WITH MODERATE WEAKNESS TO THE LEFT ARM AND LEFT LEG. ON EXAMINATION, HEART IS REGULAR IN RATE AND RHYTHM. BILATERAL LUNGS ARE NOTED WITH DIMINISHED LUNG SOUNDS THROUGHOUT. ABDOMEN IS ROUND, SOFT, AND NON-TENDER WITH NORMAL BOWEL SOUNDS NOTED IN ALL QUADRANTS. SHE IS NOTED WITH WEAK HANDGRIPS AND WEAKNESS TO THE LEFT LOWER EXTREMITY. HER VITALS THIS MORNING ARE: 98.4-85-13-96%-131/76. LABS WERE OBTAINED. ABNORMAL LAB VALUES INCLUDE THE FOLLOWING: WBC 11.3, RBC 5.44, HGB 16.4, HCT 47.2, SODIUM 135, CREATININE 0.51, TOTAL BILI 0.10, GLUCOSE 213, TOTAL BILI 1.10, ALBUMIN 3.3. SHE IS CURRENTLY RECEIVING ECOTRIN 325MG PO DAILY, PLAVIX 75MG PO DAILY, LIPITOR 40MG SC DAILY, HUMULIN R SLIDING SCALE, AND THE POTASSIUM AND MAGNESIUM PROTOCOLS. WE WILL CONTINUE WITH CURRENT PLAN OF CARE TODAY AND HAVE PHYSICAL THERAPY CONTINUE TO WORK WITH PATIENT. OTHERWISE, WE WILL FOLLOW UP WITH AM LABS AND CONTINUE TO MONITOR. - Past Medical Family Social History Past Med/Fam/Surg Hx: No changes since H&P Allergies: Allergies acetaminophen [From Vicodin] Allergy (Verified 06/10/19 15:12) hydrocodone [From Vicodin] Allergy (Verified 06/10/19 15:12) oxycodone Allergy (Verified 06/10/19 15:12) rosiglitazone [From Avandia] Allergy (Verified 06/10/19 15:12) - Review of Systems ROS: No change since H&P - Vital Signs and I&O's Vital Signs: Temperature 98.4 F Pulse Rate [Left Brachial] 98 Pulse Rate 98 Respiratory Rate 20 Blood Pressure [Right Arm] 127/81 Blood Pressure [Left Arm] 114/73 Blood Pressure 128/84 O2 Sat by Pulse Oximetry 96 Intake and Output: Intake & Output 06/14/19 06/15/19 06/16/19 06/17/19 11:59 11:59 11:59 11:59 Intake Total 1422 / 1422 1270 / 1270 1100 / 1100 420 / 420 Output Total 1550 / 1550 800 / 800 1400 / 1400 200 / 200 Balance -128 / -128 470 / 470 -300 / -300 220 / 220 - Physical Exam Oriented: Normal Eyes: Normal Ear: Normal Nose: Normal Throat: Normal Respiratory: Generalized, Diminished Cardiovascular: Normal : Normal Auscultation: Bowel Sounds: Normal Tenderness: Normal Skin: Normal Musculoskeletal: Motor Deficit (LEFT UPPER AND LOWER EXTREMITY WEAKNESS ) Psychiatric: Normal Mood Description: Calm Affect: Normal Speech Pattern: Clear, Appropriate - Laboratory and Diagnostics Result Diagrams: 06/16/19 06:09 06/16/19 06:09 Labs: Laboratory WBC 10.9 X10^3/uL (3.6-10.0) H 06/16/19 06:09 RBC 5.30 X10^6/uL (3.5-5.4) 06/16/19 06:09 Hgb 16.1 g/dL (12.0-16.0) H 06/16/19 06:09 Hct 46.2 % (36.0-47.0) 06/16/19 06:09 MCV 87.2 fL (80.0-100.0) 06/16/19 06:09 MCH 30.4 pg (27.0-34.0) 06/16/19 06:09 MCHC 34.9 g/dL (33.0-35.0) 06/16/19 06:09 RDW 13.7 % (11.6-16.5) 06/16/19 06:09 Plt Count 251 X10^3/uL (150.0-450.0) 06/16/19 06:09 MPV 9.5 fL (7.4-11.0) 06/16/19 06:09 Neut % (Auto) 68.5 % (42.0-75.0) 06/16/19 06:09 Lymph % (Auto) 22.1 % (21.0-51.0) 06/16/19 06:09 [place] % (Auto) 6.2 % (0.0-13.0) 06/16/19 06:09 Eos % (Auto) 2.6 % (0.9-2.9) 06/16/19 06:09 Baso % (Auto) 0.6 % (0.2-1.0) 06/16/19 06:09 Neut # (Auto) 7.5 x10^3/uL (2.2-4.8) H 06/16/19 06:09 Lymph # (Auto) 2.4 X10^3/uL (1.3-2.9) 06/16/19 06:09 [place] # (Auto) 0.7 x10^3/uL (0.3-0.8) 06/16/19 06:09 Eos # (Auto) 0.3 x10^3/uL (0.0-0.2) H 06/16/19 06:09 Baso # (Auto) 0.1 X10^3/uL (0.0-0.1) 06/16/19 06:09 Absolute Nucleated RBC 0.0 /100WBC 06/16/19 06:09 PT 13.2 SECONDS (11.8-14.3) 06/10/19 16:00 INR Target Range - 06/10/19 16:00 INR 1.04 (0.8-1.3) 06/10/19 16:00 APTT 25.4 SECONDS (22.9-36.5) 06/10/19 16:00 PTT Comment - 06/10/19 16:00 Fibrinogen 347 mg/dL (239-489) 06/10/19 16:00 Sodium 136 mmol/L (136-145) 06/16/19 06:09 Corrected Sodium 139 mmol/L (136-145) 06/16/19 06:09 Potassium 4.1 mmol/L (3.5-5.1) 06/16/19 06:09 Chloride 101 mmol/L (98-107) 06/16/19 06:09 Carbon Dioxide 24.7 mmol/L (21-32) 06/16/19 06:09 BUN 13 mg/dL (7-18) 06/16/19 06:09 Creatinine 0.46 mg/dL (0.55-1.02) L 06/16/19 06:09 Est GFR (MDRD) Af Amer > 60 (>60) 06/16/19 06:09 Est GFR (MDRD) Non-Af > 60 (>60) 06/16/19 06:09 Glucose 219 mg/dL (65-99) H 06/16/19 06:09 POC Glucose (mg/dL) 206 mg/dL (65-99) H 06/16/19 16:36 Calcium 8.7 mg/dL (8.5-10.1) 06/16/19 06:09 Corrected Calcium 9.4 mg/dL (8.5-10.1) 06/16/19 06:09 Magnesium 2.1 mg/dL (1.7-2.9) 06/14/19 04:35 Total Bilirubin 1.00 mg/dL (0.2-1.0) 06/16/19 06:09 AST 25 Units/L (15-37) 06/16/19 06:09 ALT 33 Units/L (12-78) 06/16/19 06:09 Alkaline Phosphatase 102 Units/L (46-116) 06/16/19 06:09 Total Protein 6.7 g/dL (6.4-8.2) 06/16/19 06:09 Albumin 3.1 g/dL (3.4-5.0) L 06/16/19 06:09 Globulin 3.6 g/dL (2.5-4.5) 06/16/19 06:09 Albumin/Globulin Ratio 0.9 Ratio (1.1-2.1) L 06/16/19 06:09 Triglycerides 318 mg/dL (0-150) H 06/10/19 16:00 Cholesterol 254 mg/dL (0-200) H 06/10/19 16:00 LDL Cholesterol, Calc 164 mg/dL (0-100) H 06/10/19 16:00 HDL Cholesterol 26 mg/dL (40-60) L 06/10/19 16:00 Cholesterol/HDL Ratio 9.8 (0.0-5.0) H 06/10/19 16:00 Specimen Type Catherized urine 06/11/19 21:00 Urine Color Yellow (YELLOW) 06/11/19 21:00 Urine Appearance Slightly hazy (CLEAR) 06/11/19 21:00 Urine pH 5.0 (5.0 - 8.0) 06/11/19 21:00 Ur Specific [place] 1.020 (1.000-1.030) 06/11/19 21:00 Urine Protein Negative (NEGATIVE) 06/11/19 21:00 Urine Glucose (UA) 4+ (NEGATIVE) 06/11/19 21:00 Urine Ketones 3+ (NEGATIVE) 02/19/20 21:00 Urine Occult Blood 1+ (NEGATIVE) 06/11/19 21:00 Urine Nitrite Negative (NEGATIVE) 06/11/19 21:00 Urine Bilirubin Negative (NEGATIVE) 06/11/19 21:00 Urine Urobilinogen Normal (NORMAL) 06/11/19 21:00 Ur Leukocyte Esterase Negative (NEGATIVE) 06/11/19 21:00 Urine RBC 3-5 /HPF (0-3) A 06/11/19 21:00 Urine WBC 0-2 /HPF (0-5) 06/11/19 21:00 Ur Squamous Epith Cells Few /HPF (NEGATIVE) 06/11/19 21:00 Urine Bacteria Trace /HPF (NEGATIVE) 06/11/19 21:00 Urine Mucus Few /HPF (NEGATIVE) 06/11/19 21:00 Ur Culture Indicated? No/not indicated 06/11/19 21:00 - Plan (1) Acute CVA (cerebrovascular accident) Status: Acute Plan: ECOTRIN 325MG PO DAILY, PLAVIX 75MGPO DAILY, HUMULIN R SLIDING SCALE, THE POTASSIUM AND MAGNESIUM PROTOCOLS, AND LIPITOR 40MG PO HS
--- NOTE | 2019-06-16 18:00 | PCM.PROG ---
Progress Note - Progress Note for Day of Date of Exam: 06/15/19 - Subjective Subjective: IS BEING TREATED FOR AN ACUTE CVA. TODAY, SHE IS ALERT, LYING IN BED ON MORNING ROUNDS. SHE CONTINUES WITH MODERATE WEAKNESS TO THE LEFT ARM AND LEFT LEG. ON EXAMINATION, HEART IS REGULAR IN RATE AND RHYTHM. BILATERAL LUNGS ARE NOTED WITH DIMINISHED LUNG SOUNDS THROUGHOUT. ABDOMEN IS ROUND, SOFT, AND NON-TENDER WITH NORMAL BOWEL SOUNDS NOTED IN ALL QUADRANTS. SHE IS NOTED WITH WEAK HANDGRIPS AND WEAKNESS TO THE LEFT LOWER EXTREMITY. HER VITALS THIS MORNING ARE: 98.3-90-20-97%-113/59. LABS WERE OBTAINED. ABNORMAL LAB VALUES INCLUDE THE FOLLOWING: WBC 12.4, SODIUM 135, CREATININE 0.50, GLUCOSE 211, ALBUMIN 3.0. SHE IS CURRENTLY RECEIVING ECOTRIN 325MG PO DAILY, PLAVIX 75MG PO DAILY, LIPITOR 40MG SC DAILY, HUMULIN R SLIDING SCALE, AND THE POTASSIUM AND MAGNESIUM PROTOCOLS. WE WILL CONTINUE WITH CURRENT PLAN OF CARE TODAY AND HAVE PHYSICAL THERAPY CONTINUE TO WORK WITH PATIENT. THEY REPORT THAT SHE REQUIRESS MODERATE ASSISTANCE FOR AMBULATION AND ADLs. WE WILL START A BOWEL REGIMEN DUE TO CONSTIPATION. OTHERWISE, WE WILL FOLLOW UP WITH AM LABS AND CONTINUE TO MONITOR. - Past Medical Family Social History Past Med/Fam/Surg Hx: No changes since H&P Allergies: Allergies acetaminophen [From Vicodin] Allergy (Verified 06/10/19 15:12) hydrocodone [From Vicodin] Allergy (Verified 06/10/19 15:12) oxycodone Allergy (Verified 06/10/19 15:12) rosiglitazone [From Avandia] Allergy (Verified 06/10/19 15:12) - Review of Systems ROS: No change since H&P - Vital Signs and I&O's Vital Signs: Temperature 98.4 F Pulse Rate [Left Brachial] 98 Pulse Rate 98 Respiratory Rate 20 Blood Pressure [Right Arm] 127/81 Blood Pressure [Left Arm] 114/73 Blood Pressure 128/84 O2 Sat by Pulse Oximetry 96 Intake and Output: Intake & Output 06/14/19 06/15/19 06/16/19 06/17/19 11:59 11:59 11:59 11:59 Intake Total 1422 / 1422 1270 / 1270 1100 / 1100 420 / 420 Output Total 1550 / 1550 800 / 800 1400 / 1400 200 / 200 Balance -128 / -128 470 / 470 -300 / -300 220 / 220 - Physical Exam Oriented: Normal Eyes: Normal Ear: Normal Nose: Normal Throat: Normal Respiratory: Generalized, Diminished Cardiovascular: Normal : Normal Auscultation: Bowel Sounds: Normal Palpation: Normal Tenderness: Normal Skin: Normal Musculoskeletal: Motor Deficit (LEFT UPPER AND LOWER EXTREMITY WEAKNESS ) Psychiatric: Normal Mood Description: Calm Affect: Normal Speech Pattern: Clear, Appropriate - Laboratory and Diagnostics Result Diagrams: 06/16/19 06:09 06/16/19 06:09 Labs: Laboratory WBC 10.9 X10^3/uL (3.6-10.0) H 06/16/19 06:09 RBC 5.30 X10^6/uL (3.5-5.4) 06/16/19 06:09 Hgb 16.1 g/dL (12.0-16.0) H 06/16/19 06:09 Hct 46.2 % (36.0-47.0) 06/16/19 06:09 MCV 87.2 fL (80.0-100.0) 06/16/19 06:09 MCH 30.4 pg (27.0-34.0) 06/16/19 06:09 MCHC 34.9 g/dL (33.0-35.0) 06/16/19 06:09 RDW 13.7 % (11.6-16.5) 06/16/19 06:09 Plt Count 251 X10^3/uL (150.0-450.0) 06/16/19 06:09 MPV 9.5 fL (7.4-11.0) 06/16/19 06:09 Neut % (Auto) 68.5 % (42.0-75.0) 06/16/19 06:09 Lymph % (Auto) 22.1 % (21.0-51.0) 06/16/19 06:09 [place] % (Auto) 6.2 % (0.0-13.0) 06/16/19 06:09 Eos % (Auto) 2.6 % (0.9-2.9) 06/16/19 06:09 Baso % (Auto) 0.6 % (0.2-1.0) 06/16/19 06:09 Neut # (Auto) 7.5 x10^3/uL (2.2-4.8) H 06/16/19 06:09 Lymph # (Auto) 2.4 X10^3/uL (1.3-2.9) 06/16/19 06:09 [place] # (Auto) 0.7 x10^3/uL (0.3-0.8) 06/16/19 06:09 Eos # (Auto) 0.3 x10^3/uL (0.0-0.2) H 06/16/19 06:09 Baso # (Auto) 0.1 X10^3/uL (0.0-0.1) 06/16/19 06:09 Absolute Nucleated RBC 0.0 /100WBC 06/16/19 06:09 PT 13.2 SECONDS (11.8-14.3) 06/10/19 16:00 INR Target Range - 06/10/19 16:00 INR 1.04 (0.8-1.3) 06/10/19 16:00 APTT 25.4 SECONDS (22.9-36.5) 06/10/19 16:00 PTT Comment - 06/10/19 16:00 Fibrinogen 347 mg/dL (239-489) 06/10/19 16:00 Sodium 136 mmol/L (136-145) 06/16/19 06:09 Corrected Sodium 139 mmol/L (136-145) 06/16/19 06:09 Potassium 4.1 mmol/L (3.5-5.1) 06/16/19 06:09 Chloride 101 mmol/L (98-107) 06/16/19 06:09 Carbon Dioxide 24.7 mmol/L (21-32) 06/16/19 06:09 BUN 13 mg/dL (7-18) 06/16/19 06:09 Creatinine 0.46 mg/dL (0.55-1.02) L 06/16/19 06:09 Est GFR (MDRD) Af Amer > 60 (>60) 06/16/19 06:09 Est GFR (MDRD) Non-Af > 60 (>60) 06/16/19 06:09 Glucose 219 mg/dL (65-99) H 06/16/19 06:09 POC Glucose (mg/dL) 206 mg/dL (65-99) H 06/16/19 16:36 Calcium 8.7 mg/dL (8.5-10.1) 06/16/19 06:09 Corrected Calcium 9.4 mg/dL (8.5-10.1) 06/16/19 06:09 Magnesium 2.1 mg/dL (1.7-2.9) 06/14/19 04:35 Total Bilirubin 1.00 mg/dL (0.2-1.0) 06/16/19 06:09 AST 25 Units/L (15-37) 06/16/19 06:09 ALT 33 Units/L (12-78) 06/16/19 06:09 Alkaline Phosphatase 102 Units/L (46-116) 06/16/19 06:09 Total Protein 6.7 g/dL (6.4-8.2) 06/16/19 06:09 Albumin 3.1 g/dL (3.4-5.0) L 06/16/19 06:09 Globulin 3.6 g/dL (2.5-4.5) 06/16/19 06:09 Albumin/Globulin Ratio 0.9 Ratio (1.1-2.1) L 06/16/19 06:09 Triglycerides 318 mg/dL (0-150) H 06/10/19 16:00 Cholesterol 254 mg/dL (0-200) H 06/10/19 16:00 LDL Cholesterol, Calc 164 mg/dL (0-100) H 06/10/19 16:00 HDL Cholesterol 26 mg/dL (40-60) L 06/10/19 16:00 Cholesterol/HDL Ratio 9.8 (0.0-5.0) H 06/10/19 16:00 Specimen Type Catherized urine 06/11/19 21:00 Urine Color Yellow (YELLOW) 06/11/19 21:00 Urine Appearance Slightly hazy (CLEAR) 06/11/19 21:00 Urine pH 5.0 (5.0 - 8.0) 06/11/19 21:00 Ur Specific [place] 1.020 (1.000-1.030) 06/11/19 21:00 Urine Protein Negative (NEGATIVE) 06/11/19 21:00 Urine Glucose (UA) 4+ (NEGATIVE) 06/11/19 21:00 Urine Ketones 3+ (NEGATIVE) 06/11/19 21:00 Urine Occult Blood 1+ (NEGATIVE) 06/11/19 21:00 Urine Nitrite Negative (NEGATIVE) 06/11/19 21:00 Urine Bilirubin Negative (NEGATIVE) 06/11/19 21:00 Urine Urobilinogen Normal (NORMAL) 06/11/19 21:00 Ur Leukocyte Esterase Negative (NEGATIVE) 06/11/19 21:00 Urine RBC 3-5 /HPF (0-3) A 06/11/19 21:00 Urine WBC 0-2 /HPF (0-5) 06/11/19 21:00 Ur Squamous Epith Cells Few /HPF (NEGATIVE) 06/11/19 21:00 Urine Bacteria Trace /HPF (NEGATIVE) 06/11/19 21:00 Urine Mucus Few /HPF (NEGATIVE) 06/11/19 21:00 Ur Culture Indicated? No/not indicated 06/11/19 21:00 - Plan (1) Acute CVA (cerebrovascular accident) Status: Acute Plan: ECOTRIN 325MG PO DAILY, PLAVIX 75MGPO DAILY, HUMULIN R SLIDING SCALE, THE POTASSIUM AND MAGNESIUM PROTOCOLS, AND LIPITOR 40MG PO HS, PHYSICAL THERAPY, CONTINUE TO MONITOR (2) Hyperlipidemia Status: Chronic Qualifiers: Hyperlipidemia type: mixed hyperlipidemia Qualified Code(s): E78.2 - Mixed hyperlipidemia Plan: CONTINUE HOME MEDS, CONTINUE TO MONITOR (3) Diabetes mellitus Status: Chronic Qualifiers: Diabetes mellitus type: type 2 Diabetes mellitus snf insulin use: with cooler servicer use Diabetes mellitus complication status: without complication Qualified Code(s): E11.9 - Type 2 diabetes mellitus without complications; Z79.4 - retirement (current) use of insulin (4) Hypokalemia Status: Acute Plan: POTASSIUM PROTOCOL, CONTINUE TO MONITOR
--- NOTE | 2019-06-16 18:28 | PCM.PROG ---
Progress Note - Progress Note for Day of Date of Exam: 06/16/19 - Subjective Subjective: IS BEING TREATED FOR AN ACUTE CVA. TODAY, SHE IS ALERT, LYING IN BED ON MORNING ROUNDS. SHE CONTINUES WITH MODERATE WEAKNESS TO THE LEFT ARM AND LEFT LEG. STAFF REPORTS INTERMITTENT CONFUSION TODAY. PHYSICAL THERAPY REPORTS THAT SHE REQUIRESS MODERATE ASSISTANCE FOR AMBULATION AND ADLs SHE REPORTS SHORTNESS OF BREATH TODAY. ON EXAMINATION, HEART IS REGULAR IN RATE AND RHYTHM. BILATERAL LUNGS ARE NOTED WITH DIMINISHED LUNG SOUNDS THROUGHOUT. ABDOMEN IS ROUND, SOFT, AND NON-TENDER WITH NORMAL BOWEL SOUNDS NOTED IN ALL QUADRANTS. SHE IS NOTED WITH WEAK HANDGRIPS AND WEAKNESS TO THE LEFT LOWER EXTREMITY. HER VITALS THIS MORNING ARE: 98.3-90-20-97%-113/59. LABS WERE OBTAINED. ABNORMAL LAB VALUES INCLUDE THE FOLLOWING: WBC 10.9, HGB 16.1, CREATININE 0.46, GLUCOSE 219, ALBUMIN 3.1. SHE IS CURRENTLY RECEIVING ECOTRIN 325MG PO DAILY, PLAVIX 75MG PO DAILY, LIPITOR 40MG SC DAILY, COLACE, MIRALAX, MILK OF MAGNESIA, HUMULIN R SLIDING SCALE, AND THE POTASSIUM AND MAGNESIUM PROTOCOLS. WE WILL CONTINUE WITH CURRENT PLAN OF CARE TODAY AND HAVE PHYSICAL THERAPY CONTINUE TO WORK WITH PATIENT. SHE WILL REQUIRE PHYSICAL THERAPY AND REHAB AFTER DISCHARGE. CASE MANAGEMENT WILL BEGIN TO ARRANGE PLACEMENT. OTHERWISE, WE WILL FOLLOW UP WITH AM LABS AND CONTINUE TO MONITOR. - Past Medical Family Social History Past Med/Fam/Surg Hx: No changes since H&P Allergies: Allergies acetaminophen [From Vicodin] Allergy (Verified 06/10/19 15:12) hydrocodone [From Vicodin] Allergy (Verified 06/10/19 15:12) oxycodone Allergy (Verified 06/10/19 15:12) rosiglitazone [From Avandia] Allergy (Verified 06/10/19 15:12) - Review of Systems ROS: No change since H&P - Vital Signs and I&O's Vital Signs: Temperature 98.4 F Pulse Rate [Left Brachial] 98 Pulse Rate 98 Respiratory Rate 20 Blood Pressure [Right Arm] 127/81 Blood Pressure [Left Arm] 114/73 Blood Pressure 128/84 O2 Sat by Pulse Oximetry 96 Intake and Output: Intake & Output 06/14/19 06/15/19 06/16/19 06/17/19 11:59 11:59 11:59 11:59 Intake Total 1422 / 1422 1270 / 1270 1100 / 1100 420 / 420 Output Total 1550 / 1550 800 / 800 1400 / 1400 200 / 200 Balance -128 / -128 470 / 470 -300 / -300 220 / 220 - Physical Exam Oriented: Normal Eyes: Normal Ear: Normal Nose: Normal Throat: Normal Respiratory: Generalized, Diminished Cardiovascular: Normal : Normal Auscultation: Bowel Sounds: Normal Tenderness: Normal Skin: Normal Musculoskeletal: Motor Deficit (LEFT UPPER AND LOWER EXTREMITY WEAKNESS ) Psychiatric: Normal Mood Description: Calm Affect: Normal Speech Pattern: Clear, Appropriate - Laboratory and Diagnostics Result Diagrams: 06/16/19 06:09 06/16/19 06:09 Labs: Laboratory WBC 10.9 X10^3/uL (3.6-10.0) H 06/16/19 06:09 RBC 5.30 X10^6/uL (3.5-5.4) 06/16/19 06:09 Hgb 16.1 g/dL (12.0-16.0) H 06/16/19 06:09 Hct 46.2 % (36.0-47.0) 06/16/19 06:09 MCV 87.2 fL (80.0-100.0) 06/16/19 06:09 MCH 30.4 pg (27.0-34.0) 06/16/19 06:09 MCHC 34.9 g/dL (33.0-35.0) 06/16/19 06:09 RDW 13.7 % (11.6-16.5) 06/16/19 06:09 Plt Count 251 X10^3/uL (150.0-450.0) 06/16/19 06:09 MPV 9.5 fL (7.4-11.0) 06/16/19 06:09 Neut % (Auto) 68.5 % (42.0-75.0) 06/16/19 06:09 Lymph % (Auto) 22.1 % (21.0-51.0) 06/16/19 06:09 [place] % (Auto) 6.2 % (0.0-13.0) 06/16/19 06:09 Eos % (Auto) 2.6 % (0.9-2.9) 06/16/19 06:09 Baso % (Auto) 0.6 % (0.2-1.0) 06/16/19 06:09 Neut # (Auto) 7.5 x10^3/uL (2.2-4.8) H 06/16/19 06:09 Lymph # (Auto) 2.4 X10^3/uL (1.3-2.9) 06/16/19 06:09 [place] # (Auto) 0.7 x10^3/uL (0.3-0.8) 06/16/19 06:09 Eos # (Auto) 0.3 x10^3/uL (0.0-0.2) H 06/16/19 06:09 Baso # (Auto) 0.1 X10^3/uL (0.0-0.1) 06/16/19 06:09 Absolute Nucleated RBC 0.0 /100WBC 06/16/19 06:09 PT 13.2 SECONDS (11.8-14.3) 06/10/19 16:00 INR Target Range - 06/10/19 16:00 INR 1.04 (0.8-1.3) 06/10/19 16:00 APTT 25.4 SECONDS (22.9-36.5) 06/10/19 16:00 PTT Comment - 06/10/19 16:00 Fibrinogen 347 mg/dL (239-489) 06/10/19 16:00 Sodium 136 mmol/L (136-145) 06/16/19 06:09 Corrected Sodium 139 mmol/L (136-145) 06/16/19 06:09 Potassium 4.1 mmol/L (3.5-5.1) 06/16/19 06:09 Chloride 101 mmol/L (98-107) 06/16/19 06:09 Carbon Dioxide 24.7 mmol/L (21-32) 06/16/19 06:09 BUN 13 mg/dL (7-18) 06/16/19 06:09 Creatinine 0.46 mg/dL (0.55-1.02) L 06/16/19 06:09 Est GFR (MDRD) Af Amer > 60 (>60) 06/16/19 06:09 Est GFR (MDRD) Non-Af > 60 (>60) 06/16/19 06:09 Glucose 219 mg/dL (65-99) H 06/16/19 06:09 POC Glucose (mg/dL) 206 mg/dL (65-99) H 06/16/19 16:36 Calcium 8.7 mg/dL (8.5-10.1) 06/16/19 06:09 Corrected Calcium 9.4 mg/dL (8.5-10.1) 06/16/19 06:09 Magnesium 2.1 mg/dL (1.7-2.9) 06/14/19 04:35 Total Bilirubin 1.00 mg/dL (0.2-1.0) 06/16/19 06:09 AST 25 Units/L (15-37) 06/16/19 06:09 ALT 33 Units/L (12-78) 06/16/19 06:09 Alkaline Phosphatase 102 Units/L (46-116) 06/16/19 06:09 Total Protein 6.7 g/dL (6.4-8.2) 06/16/19 06:09 Albumin 3.1 g/dL (3.4-5.0) L 06/16/19 06:09 Globulin 3.6 g/dL (2.5-4.5) 06/16/19 06:09 Albumin/Globulin Ratio 0.9 Ratio (1.1-2.1) L 06/16/19 06:09 Triglycerides 318 mg/dL (0-150) H 06/10/19 16:00 Cholesterol 254 mg/dL (0-200) H 06/10/19 16:00 LDL Cholesterol, Calc 164 mg/dL (0-100) H 06/10/19 16:00 HDL Cholesterol 26 mg/dL (40-60) L 06/10/19 16:00 Cholesterol/HDL Ratio 9.8 (0.0-5.0) H 06/10/19 16:00 Specimen Type Catherized urine 06/11/19 21:00 Urine Color Yellow (YELLOW) 06/11/19 21:00 Urine Appearance Slightly hazy (CLEAR) 06/11/19 21:00 Urine pH 5.0 (5.0 - 8.0) 06/11/19 21:00 Ur Specific [place] 1.020 (1.000-1.030) 06/11/19 21:00 Urine Protein Negative (NEGATIVE) 02/19/20 21:00 Urine Glucose (UA) 4+ (NEGATIVE) 06/11/19 21:00 Urine Ketones 3+ (NEGATIVE) 06/11/19 21:00 Urine Occult Blood 1+ (NEGATIVE) 06/11/19 21:00 Urine Nitrite Negative (NEGATIVE) 06/11/19 21:00 Urine Bilirubin Negative (NEGATIVE) 06/11/19 21:00 Urine Urobilinogen Normal (NORMAL) 06/11/19 21:00 Ur Leukocyte Esterase Negative (NEGATIVE) 06/11/19 21:00 Urine RBC 3-5 /HPF (0-3) A 06/11/19 21:00 Urine WBC 0-2 /HPF (0-5) 06/11/19 21:00 Ur Squamous Epith Cells Few /HPF (NEGATIVE) 06/11/19 21:00 Urine Bacteria Trace /HPF (NEGATIVE) 06/11/19 21:00 Urine Mucus Few /HPF (NEGATIVE) 06/11/19 21:00 Ur Culture Indicated? No/not indicated 06/11/19 21:00 - Plan (1) Acute CVA (cerebrovascular accident) Status: Acute Plan: ECOTRIN 325MG PO DAILY, PLAVIX 75MGPO DAILY, HUMULIN R SLIDING SCALE, THE POTASSIUM AND MAGNESIUM PROTOCOLS, AND LIPITOR 40MG PO HS, PHYSICAL THERAPY, CONTINUE TO MONITOR (2) Hyperlipidemia Status: Chronic Qualifiers: Hyperlipidemia type: mixed hyperlipidemia Qualified Code(s): E78.2 - Mixed hyperlipidemia Plan: CONTINUE HOME MEDS, CONTINUE TO MONITOR (3) Diabetes mellitus Status: Chronic Qualifiers: Diabetes mellitus type: type 2 Diabetes mellitus terminal gauger supervisor insulin use: with terminal gauger supervisor use Diabetes mellitus complication status: without complication Qualified Code(s): E11.9 - Type 2 diabetes mellitus without complications; Z79.4 - manager intermediate (current) use of insulin (4) Hypokalemia Status: Acute Plan: POTASSIUM PROTOCOL, CONTINUE TO MONITOR
[2019-06-16] MEDS: COLACE CAP 100 MG PO SCH (21:23)
[2019-06-16] MEDS: LIPITOR TAB 40 MG PO SCH (21:23)
[2019-06-16] MEDS: SNACK - Diabetic Appropriate PO SCH (21:24)
[2019-06-16 21:42] LABS: BILIRUBIN,URINE NEGATIVE (NEGATIVE); BLOOD/HEMOGLOBIN,URINE 5+ (NEGATIVE); GLUCOSE, URINE 3+ (NEGATIVE); KETONES,URINE 3+ (NEGATIVE); LEUKOCYTE ESTERASE ,URINE 3+ (NEGATIVE); NITRITES,URINE POSITIVE (NEGATIVE); PROTEIN,URINE 3+ (NEGATIVE); UROBILINOGEN,URINE NORMAL (NORMAL)
[2019-06-16 21:46] LABS: APPEARANCE,URINE HAZY (CLEAR); COLOR,URINE BROWN (YELLOW); RBC,URINE TNTC /HPF (0-3); SQUAMOUS EPITHELIAL CELL,UR RARE /HPF (NEGATIVE)
[2019-06-16 21:47] LABS: AMORPHOUS SEDIMENT,UR 2+ /HPF (NEGATIVE); BACTERIA,URINE 2+ /HPF (NEGATIVE)
--- NOTE | 2019-06-16 23:02 | RAD ---
STUDY: FRONTAL VIEW CHESTCOMPARISON: NoneHISTORY: SOBFINDINGS:No focal consolidation is seen.The heart size is within normal limitsThe mediastinum is unremarkable.There is no evidence of pleural effusion or gross pneumothorax.Trachea is midline.IMPRESSION:1. NO FOCAL CONSOLIDATION SEEN.2. THE HEART SIZE IS NORMAL.Electronically signed by: James Ibrahim (Jun 16, 2019 23:01:42)
[2019-06-17] MEDS: HumuLIN R SUBCUT PRN ×2 (06:05→11:30)
[2019-06-17 06:26] LABS: BASOPHILS # (AUTO) 0.1 X10^3/uL (0.0-0.1); BASOPHILS % (AUTO) 0.5 % (0.2-1.0); EOSINOPHILS # (AUTO) 0.4 x10^3/uL (0.0-0.2); HEMATOCRIT 48.3 % (36.0-47.0); HEMOGLOBIN 16.5 g/dL (12.0-16.0); LYMPHOCYTES # (AUTO) 2.5 X10^3/uL (1.3-2.9); LYMPHOCYTES % (AUTO) 20.9 % (21.0-51.0); MEAN CORPUSCULAR HEMOGLOBIN 30.1 pg (27.0-34.0); MEAN CORPUSCULAR HGB CONC 34.1 g/dL (33.0-35.0); MEAN CORPUSCULAR VOLUME 88.3 fL (80.0-100.0); MEAN PLATELET VOLUME 9.2 fL (7.4-11.0); MONOCYTES # (AUTO) 0.8 x10^3/uL (0.3-0.8); MONOCYTES % (AUTO) 6.6 % (0.0-13.0); NEUTROPHILS # (AUTO) 8.2 x10^3/uL (2.2-4.8); PLATELET COUNT 291 X10^3/uL (150.0-450.0); RED BLOOD COUNT 5.47 X10^6/uL (3.5-5.4); RED CELL DISTRIBUTION WIDTH 13.7 % (11.6-16.5); WHITE BLOOD COUNT 11.9 X10^3/uL (3.6-10.0)
[2019-06-17 06:38] LABS: BLOOD UREA NITROGEN 10 mg/dL (7-18); CALCIUM 8.5 mg/dL (8.5-10.1); CARBON DIOXIDE 28.9 mmol/L (21-32); CHLORIDE 99 mmol/L (98-107); COR NA(FOR HYPERGLY) 137 mmol/L (136-145); CREATININE 0.51 mg/dL (0.55-1.02); SODIUM 135 mmol/L (136-145); eGFR NON BLACK RACES > 60 (>60)
[2019-06-17] MEDS: MILK OF MAGNESIA PO SCH (10:08)
[2019-06-17] MEDS: ECOTRIN TAB 325 MG PO SCH (10:09)
[2019-06-17] MEDS: PLAVIX PO SCH (10:09)
[2019-06-17] MEDS: PEPCID TAB 20 MG PO SCH (10:10)
[2019-06-17] MEDS ORDERED: MACROBID CAP 100 MG EXT REL PO NR (13:00)
[2019-06-17 13:16] VITALS: BP 109/68
[2019-06-17] MEDS: LOVENOX INJ 40 MG SYR SC SCH ×2 (13:55→16:20)
[2019-06-17] MEDS: ULTRAM PO PRN (13:55)
[2019-06-17] MEDS ORDERED: NICOTINE PATCH TD SCH (14:00)
[2019-06-17] MEDS ORDERED: FLEET ENEMA ADULT ONE (15:07)
== END 2019-06-17 16:10 | DRG 65 ==
LOC: ER 15:03 → ICU 18:37 → MED/SURG 06-14 17:35
PROVIDERS: ADMIT Internal Medicine; ATTEND Internal Medicine
DX: E87.1 Hypo-osmolality and hyponatremia; B96.29 Other Escherichia coli [E. coli] as the cause of diseases classified elsewhere; R06.02 Shortness of breath; I63.89 Other cerebral infarction; N39.0 Urinary tract infection, site not specified; L40.8 Other psoriasis; E11.65 Type 2 diabetes mellitus with hyperglycemia; Z79.4 Long term (current) use of insulin; E78.2 Mixed hyperlipidemia; K59.09 Other constipation
CPT/HCPCS: 36415; 70450; 70551; 71010; 71045; 80048; 80053; 80061; 81001; 83735; 84132; 85025; 85384; 85610; 85730; 87086; 87088; 87186; 92610; 93005; 93306; 93880; 96365; 97110; 97112; 97163; 97167; 97530; 99285; A4222; J1650; J1815; J3475; J7050